=== PATIENT | male | born 1975 | race African-American/Black ===

== ENCOUNTER 2018-07-08 00:51 | Emergency (ER) | payer MEDICAID ==
[~2018-07-08] VITALS: Ht 182.9 cm; Wt 75.0 kg
[2018-07-08 05:50] LABS: HEMATOCRIT. 23.5 % (42.0-52.0); HEMOGLOBIN. 7.8 g/dL (14.0-18.0); MEAN CORPUSCULAR HEMOGLOBIN 29.3 pg (28.0-32.0); PLATELET 117 x1000/uL (130-400); RED BLOOD CELL COUNT 2.67 mill/uL (4.7-6.1); RED CELL DISTRIBUTION WIDTH 14.6 % (11.6-14.6)
[2018-07-08 05:54] LABS: CHLORIDE 103 mEq/L (98-107)
[2018-07-08 05:55] LABS: INR 1.1
[2018-07-08 06:01] LABS: ETHANOL BLOOD < 10 mg/dL
[2018-07-08] MEDS ORDERED: ACETAMINOPHEN 325MG TABLET PO STA (06:20)
[2018-07-08 06:26] LABS: CLARITY URINE CLEAR (CLEAR); COLOR URINE DARK YELLOW (YELLOW); KETONES URINE TRACE (NEGATIVE); LEUKOCYTE ESTERASE URINE NEGATIVE (NEGATIVE); NITRITE URINE NEGATIVE (NEGATIVE); OCCULT BLOOD URINE 2+ (NEGATIVE); PROTEIN URINE 3+ (NEGATIVE)
[2018-07-08] MEDS ORDERED: SODIUM CHLORIDE 0.9% 1000ML BAG (SEPSIS BOLUS) IV ONE (06:30)
[2018-07-08] MEDS ORDERED: PIPERACILLIN/TAZ 3.375G PREMIX 50 ML IV ONE (06:30)
[2018-07-08] MEDS ORDERED: VANCOMYCIN 1 G PREMIX 200 ML IV ONE (06:30)
[2018-07-08 06:42] LABS: *AMPHETAMINES SCREEN URINE NEGATIVE (NEGATIVE); *BARBITURATES SCREEN URINE NEGATIVE (NEGATIVE); *BENZODIAZEPINES SCREEN URINE NEGATIVE (NEGATIVE); *COCAINE SCREEN URINE NEGATIVE (NEGATIVE)
[2018-07-08 06:43] LABS: METHADONE URINE SCREEN NEGATIVE (NEGATIVE); OPIATES URINE SCREEN NEGATIVE (NEGATIVE); PHENCYCLIDINE URINE SCREEN NEGATIVE (NEGATIVE)
[2018-07-08 06:44] LABS: CANNABINOID URINE SCREEN NEGATIVE (NEGATIVE)
[2018-07-08 07:40] LABS: PLATELET ESTIMATE SLIGHTLY DECREASED
[2018-07-08 10:47] VITALS: BP 123/59
== END 2018-07-08 10:50 | disposition home or self-care (01) ==
LOC: ER 00:51
DX: B34.9 Viral infection, unspecified (principal); D64.9 Anemia, unspecified; F17.200 Nicotine dependence, unspecified, uncomplicated; Z98.890 Other specified postprocedural states
CPT/HCPCS: 36415; 71045; 80053; 80305; 80320; 81003; 83605; 85025; 85610; 87040; 87804; 96365; 96366; 96367; 99284; J2543; J3370; J7030; J7040; G0480

== ENCOUNTER 2020-05-02 04:26 | Inpatient (IN) | payer MEDICAID ==
[~2020-05-02] VITALS: Ht 175.3 cm; Wt 77.1 kg
[2020-05-02 05:21] LABS: BASOPHILS % 0.8 % (0.0-2.0); EOSINOPHILS % 0.3 % (0.0-5.0); HEMOGLOBIN. 10.6 g/dL (14.0-18.0); LYMPHOCYTES % 22.7 % (20.0-50.0); MEAN CORPUSCULAR HEMOGLOBIN 30.1 pg (28.0-32.0); MEAN CORPUSCULAR VOLUME 93.2 fL (80.0-94.0); MEAN PLATELET VOLUME 9.8 fl (7.4-10.4); MONOCYTES % 12.2 % (2.0-8.0); PLATELET 182 x1000/uL (130-400); RED BLOOD CELL COUNT 3.54 mill/uL (4.7-6.1)
[2020-05-02 05:27] LABS: CHLORIDE 107 mEq/L (98-107)
[2020-05-02] MEDS ORDERED: ASPIRIN 81MG TABLET PO ONE (07:00)
[2020-05-02] MEDS ORDERED: FUROSEMIDE 40MG/4ML VIAL IV ONE (07:00)
[2020-05-02] MEDS ORDERED: ONDANSETRON HCL 4MG/2ML INJ IV PRN (08:45)
[2020-05-02] MEDS ORDERED: ACETAMINOPHEN 325MG TABLET PO PRN (08:45)
[2020-05-02] MEDS: ENOXAPARIN 100MG/ML SYR SUBCUT SCH ×3 (09:00→21:59)
[2020-05-02] MEDS: FUROSEMIDE 40MG/4ML VIAL IVP SCH ×2 (09:00→17:31)
[2020-05-02] MEDS: CARVEDILOL 3.125 MG TABLET PO SCH ×2 (14:31→21:58)
[2020-05-02 16:00] VITALS: BP 119/69
[2020-05-02] MEDS ORDERED: NOREPINEPHRINE 8 MG in DEXTROSE 5% WATER 250 ML IV PRN (16:00)
[2020-05-02] MEDS ORDERED: NOREPINEPHRINE 8 MG in DEXT 5% WATER 242 ML IV PRN (16:00)
[2020-05-02 16:26] VITALS: BP 123/82
[2020-05-02] MEDS ORDERED: FURO-151 MT (16:41)
[2020-05-02] MEDS: THIAMINE HCL 100MG TABLET PO SCH (17:31)
[2020-05-02 19:58] VITALS: BP 103/1
[2020-05-03] VITALS: BP 108/60
[2020-05-03 04:00] VITALS: BP 126/84
[2020-05-03] MEDS: FUROSEMIDE 40MG/4ML VIAL IVP SCH (06:15)
[2020-05-03 06:25] LABS: *AMPHETAMINES SCREEN URINE NEGATIVE (NEGATIVE)
[2020-05-03 06:26] LABS: *BARBITURATES SCREEN URINE NEGATIVE (NEGATIVE); *BENZODIAZEPINES SCREEN URINE NEGATIVE (NEGATIVE); *COCAINE SCREEN URINE NEGATIVE (NEGATIVE); METHADONE URINE SCREEN NEGATIVE (NEGATIVE); OPIATES URINE SCREEN NEGATIVE (NEGATIVE); PHENCYCLIDINE URINE SCREEN NEGATIVE (NEGATIVE)
[2020-05-03 06:27] LABS: CANNABINOID URINE SCREEN NEGATIVE (NEGATIVE)
[2020-05-03 06:43] LABS: CHLORIDE 104 mEq/L (98-107)
[2020-05-03 06:47] LABS: INR 1.2; PROTHROMBIN TIME 12.9 sec (9.6-11.0)
[2020-05-03] MEDS: ENOXAPARIN 100MG/ML SYR SUBCUT SCH (09:00)
[2020-05-03] MEDS: CARVEDILOL 3.125 MG TABLET PO SCH (10:09)
[2020-05-03] MEDS: THIAMINE HCL 100MG TABLET PO SCH (10:09)
[2020-05-03 12:00] VITALS: BP 112/86
[2020-05-03] MEDS ORDERED: FUROSEMIDE 40MG/4ML VIAL IVP NR (13:00)
[2020-05-03] MEDS ORDERED: LORAZEPAM 2MG/ML CPJ IV PRN (13:00)
[2020-05-03] MEDS ORDERED: CHLORDIAZEPOXIDE 25MG CAPSULE PO NR (13:00)
[2020-05-03] MEDS ORDERED: ENOXAPARIN 80MG/0.8ML SYR SUBCUT SCH (21:00)
[2020-05-03] MEDS ORDERED: CHLORDIAZEPOXIDE 25MG CAPSULE PO SCH (22:00)
== END 2020-05-03 14:00 | disposition left against medical advice (07) | DRG 194 ==
LOC: ER 04:26 → 8WST 08:33 → ENRESERV 14:53
PROVIDERS: ADMIT Internal Medicine; ATTEND Internal Medicine
DX: I13.0 Hypertensive heart and chronic kidney disease with heart failure and stage 1 through stage 4 chronic kidney disease, or unspecified chronic kidney disease (principal); D64.9 Anemia, unspecified; E44.0 Moderate protein-calorie malnutrition; F10.10 Alcohol abuse, uncomplicated; F17.210 Nicotine dependence, cigarettes, uncomplicated; N18.2 Chronic kidney disease, stage 2 (mild); I48.91 Unspecified atrial fibrillation; R74.01 Elevation of levels of liver transaminase levels; I50.43 Acute on chronic combined systolic (congestive) and diastolic (congestive) heart failure; Z53.29 Procedure and treatment not carried out because of patient's decision for other reasons; Z68.25 Body mass index [BMI] 25.0-25.9, adult; I33.0 Acute and subacute infective endocarditis
CPT/HCPCS: 36415; 71045; 80048; 80053; 80061; 80305; 83880; 84443; 84484; 85025; 93005; 93306; 96374; 99291; J1650; J1940

== ENCOUNTER 2020-05-11 07:13 | Inpatient (IN) | payer MEDICAID ==
[~2020-05-11] VITALS: Ht 175.3 cm; Wt 93.9 kg
[~2020-05-11 07:13] MED LIST: FURO-151 MT
[2020-05-11 08:01] LABS: BASOPHILS % 0.6 % (0.0-2.0); EOSINOPHILS % 0.1 % (0.0-5.0); HEMATOCRIT. 34.5 % (42.0-52.0); HEMOGLOBIN. 10.9 g/dL (14.0-18.0); LYMPHOCYTES % 13.3 % (20.0-50.0); MEAN CORPUSCULAR HEMOGLOBIN 29.8 pg (28.0-32.0); MEAN PLATELET VOLUME 10.8 fl (7.4-10.4); MONOCYTES % 14.8 % (2.0-8.0); NEUTROPHILS % 71.2 % (40.0-76.0); PLATELET 169 x1000/uL (130-400); RED BLOOD CELL COUNT 3.67 mill/uL (4.7-6.1); RED CELL DISTRIBUTION WIDTH 17.7 % (11.6-14.6)
[2020-05-11 08:03] LABS: CHLORIDE 106 mEq/L (98-107)
[2020-05-11] MEDS ORDERED: ONDANSETRON HCL 4MG/2ML INJ IV PRN (12:45)
[2020-05-11] MEDS: ENOXAPARIN 80MG/0.8ML SYR SUBCUT SCH (13:00)
[2020-05-11] MEDS: DILTIAZEM HCL 30MG TABLET PO SCH ×2 (13:09→21:19)
[2020-05-11] MEDS: FUROSEMIDE 40MG/4ML VIAL IVP SCH ×2 (13:09→18:57)
[2020-05-11 14:45] LABS: BASOPHILS % 0.8 % (0.0-2.0); HEMATOCRIT. 34.9 % (42.0-52.0); HEMOGLOBIN. 11.2 g/dL (14.0-18.0); MEAN CORPUSCULAR HEMOGLOBIN 29.8 pg (28.0-32.0); MEAN CORPUSCULAR VOLUME 93.2 fL (80.0-94.0); MEAN PLATELET VOLUME 10.8 fl (7.4-10.4); NEUTROPHILS % 76.2 % (40.0-76.0); PLATELET 173 x1000/uL (130-400); RED BLOOD CELL COUNT 3.74 mill/uL (4.7-6.1); RED CELL DISTRIBUTION WIDTH 17.9 % (11.6-14.6)
[2020-05-11] MEDS ORDERED: IPRATROPIUM/ALBUTEROL 0.5-3(2.5)MG/3ML NEB HHN PRN (14:45)
[2020-05-11 14:56] LABS: METHADONE URINE SCREEN NEGATIVE (NEGATIVE); OPIATES URINE SCREEN NEGATIVE (NEGATIVE)
[2020-05-11 14:57] LABS: *AMPHETAMINES SCREEN URINE NEGATIVE (NEGATIVE); *BARBITURATES SCREEN URINE NEGATIVE (NEGATIVE)
[2020-05-11 14:58] LABS: PHENCYCLIDINE URINE SCREEN NEGATIVE (NEGATIVE)
[2020-05-11 14:59] LABS: *COCAINE SCREEN URINE NEGATIVE (NEGATIVE)
[2020-05-11 15:00] LABS: CANNABINOID URINE SCREEN NEGATIVE (NEGATIVE)
[2020-05-11] MEDS ORDERED: CEFTRIAXONE 2 G PREMIX 50 ML IV SCH (15:00)
[2020-05-11] MEDS ORDERED: VANCOMYCIN 1,750 MG in DEXT 5% WATER 250 ML IV NR (15:00)
[2020-05-11 15:01] LABS: *BENZODIAZEPINES SCREEN URINE NEGATIVE (NEGATIVE)
[2020-05-11] MEDS: CEFTRIAXONE 2 G in DEXTROSE 5% WATER 50 ML IV SCH (18:38)
[2020-05-11] MEDS: ACETAMINOPHEN 325MG TABLET PO PRN (23:19)
[2020-05-12 03:58] LABS: BASOPHILS % 0.4 % (0.0-2.0); EOSINOPHILS % 0.1 % (0.0-5.0); HEMATOCRIT. 35.9 % (42.0-52.0); LYMPHOCYTES % 7.8 % (20.0-50.0); MEAN CORPUSCULAR VOLUME 94.5 fL (80.0-94.0); MEAN PLATELET VOLUME 11.1 fl (7.4-10.4); MONOCYTES % 14.1 % (2.0-8.0); NEUTROPHILS % 77.6 % (40.0-76.0); PLATELET 166 x1000/uL (130-400); RED CELL DISTRIBUTION WIDTH 17.6 % (11.6-14.6)
[2020-05-12 04:08] LABS: INR 1.3; PROTHROMBIN TIME 13.7 sec (9.6-11.0)
[2020-05-12] MEDS: DILTIAZEM HCL 30MG TABLET PO SCH ×3 (06:56→21:00)
[2020-05-12] MEDS: ENOXAPARIN 80MG/0.8ML SYR SUBCUT SCH (06:57)
[2020-05-12 10:30] VITALS: BP 103/86
[2020-05-12] MEDS: FUROSEMIDE 40MG/4ML VIAL IVP SCH ×2 (11:31→18:08)
[2020-05-12] MEDS: ACETAMINOPHEN 325MG TABLET PO PRN (11:32)
[2020-05-12 12:00] VITALS: BP 90/54
[2020-05-12] MEDS ORDERED: METO-396 MT (15:04)
[2020-05-12] MEDS ORDERED: LOSA25TA26 MT (15:04)
[2020-05-12 16:00] VITALS: BP 114/83
[2020-05-12] MEDS: CEFTRIAXONE 2 G in DEXTROSE 5% WATER 50 ML IV SCH (18:08)
[2020-05-12] MEDS: APIXABAN 5 MG TABLET PO SCH (18:08)
[2020-05-12 20:00] VITALS: BP 125/78
[2020-05-12] MEDS ORDERED: METOLAZONE 2.5MG TABLET PO NR (20:30)
[2020-05-13] VITALS: BP 98/79
[2020-05-13 04:00] VITALS: BP 112/85
[2020-05-13] MEDS: DILTIAZEM HCL 30MG TABLET PO SCH ×3 (05:14→22:00)
[2020-05-13 08:00] VITALS: BP 107/66
[2020-05-13] MEDS: APIXABAN 5 MG TABLET PO SCH ×2 (09:20→17:21)
[2020-05-13] MEDS: FUROSEMIDE 40MG/4ML VIAL IVP SCH ×2 (09:20→17:21)
[2020-05-13 12:00] VITALS: BP 110/78
[2020-05-13] MEDS ORDERED: VANCOMYCIN 1250MG in DEXTROSE 5% WATER 250ML IV NR (14:00)
[2020-05-13] MEDS: CEFTRIAXONE 2 G in DEXTROSE 5% WATER 50 ML IV SCH (14:39)
[2020-05-13] MEDS: ACETAMINOPHEN 325MG TABLET PO PRN (14:53)
[2020-05-13 16:00] VITALS: BP 101/76
[2020-05-13] MEDS ORDERED: DAPTOMYCIN 500 MG in SODIUM CHLORIDE 0.9% 50 ML IV SCH ×2 (19:30→21:00)
[2020-05-13 20:00] VITALS: BP 117/84
[2020-05-13] MEDS ORDERED: DAPTOMYCIN 250 MG in SODIUM CHLORIDE 0.9% 50 ML IV SCH (20:00)
[2020-05-13] MEDS: DAPTOMYCIN 500 MG in SODIUM CHLORIDE 0.9% 50 ML IV SCH (22:00)
[2020-05-14] VITALS: BP 102/76
[2020-05-14 04:00] VITALS: BP 99/70
[2020-05-14] MEDS: DILTIAZEM HCL 30MG TABLET PO SCH ×3 (06:00→21:28)
[2020-05-14] MEDS: ACETAMINOPHEN 325MG TABLET PO PRN ×2 (06:58→22:30)
[2020-05-14 07:38] LABS: BASOPHILS % 0.1 % (0.0-2.0); EOSINOPHILS % 0.1 % (0.0-5.0); HEMATOCRIT. 34.4 % (42.0-52.0); HEMOGLOBIN. 11.1 g/dL (14.0-18.0); MEAN CORPUSCULAR HEMOGLOBIN 30.1 pg (28.0-32.0); MEAN CORPUSCULAR VOLUME 93.8 fL (80.0-94.0); MEAN PLATELET VOLUME 11.3 fl (7.4-10.4); MONOCYTES % 11.8 % (2.0-8.0); PLATELET 184 x1000/uL (130-400); RED BLOOD CELL COUNT 3.67 mill/uL (4.7-6.1)
[2020-05-14 08:00] VITALS: BP 110/78
[2020-05-14] MEDS: FUROSEMIDE 40MG/4ML VIAL IVP SCH ×2 (08:37→17:02)
[2020-05-14] MEDS: APIXABAN 5 MG TABLET PO SCH ×2 (08:38→17:02)
[2020-05-14] MEDS ORDERED: LIDOCAINE HCL/PF 1% 2ML VIAL ONE (09:00)
[2020-05-14 10:26] LABS: BG BASE EXCESS -3.9 mmol/L (-2.0-2.0); BG CARBOXYHEMOGLOBIN 0.6 % (0.5-1.5); BG DEOXYHEMOGLOBIN 1.1 % (0.0-5.0); BG FRACTION INSPIRED OXYGEN 36; BG HCO3 ACT 19.6 mmol/L (22.0-26.0); BG METHEMOGLOBIN 0.3 % (0.0-1.5); BG OXYGEN SATURATION 98.9 % (92.0-98.5); BG PCO2 30.9 mmHg (35.0-45.0); BG PH 7.421 (7.350-7.450); BG PO2 137.9 mmHg (75.0-100.0); BG SAMPLE SITE RIGHT RADIAL; BG TOTAL HEMOGLOBIN 11.7 g/dL (12.0-18.0); BG VENT MODE NASAL CANNULA
[2020-05-14 12:00] VITALS: BP 102/80
[2020-05-14 16:00] VITALS: BP 141/108
[2020-05-14] MEDS: CEFTRIAXONE 2 G in DEXTROSE 5% WATER 50 ML IV SCH (16:54)
[2020-05-14 20:00] VITALS: BP 110/77
[2020-05-14] MEDS: DAPTOMYCIN 500 MG in SODIUM CHLORIDE 0.9% 50 ML IV SCH (22:21)
[2020-05-15] VITALS: BP 111/72
[2020-05-15] MEDS: DAPTOMYCIN 500 MG in SODIUM CHLORIDE 0.9% 50 ML IV SCH ×2 (03:26→21:44)
[2020-05-15 04:00] VITALS: BP 122/60
[2020-05-15] MEDS: DILTIAZEM HCL 30MG TABLET PO SCH ×4 (05:56→21:44)
[2020-05-15 08:00] VITALS: BP 116/86
[2020-05-15] MEDS: FUROSEMIDE 40MG/4ML VIAL IVP SCH ×2 (08:32→16:42)
[2020-05-15] MEDS: APIXABAN 5 MG TABLET PO SCH ×2 (08:33→16:42)
[2020-05-15 12:00] VITALS: BP 100/77
[2020-05-15 15:51] LABS: BASOPHILS % 0.6 % (0.0-2.0); EOSINOPHILS % 0.1 % (0.0-5.0); HEMATOCRIT. 34.5 % (42.0-52.0); HEMOGLOBIN. 11.1 g/dL (14.0-18.0); LYMPHOCYTES % 8.2 % (20.0-50.0); MEAN CORPUSCULAR HEMOGLOBIN 30.2 pg (28.0-32.0); MEAN CORPUSCULAR VOLUME 94.3 fL (80.0-94.0); MONOCYTES % 13.6 % (2.0-8.0); NEUTROPHILS % 77.5 % (40.0-76.0); PLATELET 149 x1000/uL (130-400); RED BLOOD CELL COUNT 3.66 mill/uL (4.7-6.1); RED CELL DISTRIBUTION WIDTH 18.1 % (11.6-14.6)
[2020-05-15 16:00] VITALS: BP 109/87
[2020-05-15 16:03] LABS: PHOSPHORUS 5.2 mg/dL (2.5-4.9)
[2020-05-15] MEDS: CEFTRIAXONE 2 G in DEXTROSE 5% WATER 50 ML IV SCH (16:17)
[2020-05-15 20:00] VITALS: BP 109/88
[2020-05-15] MEDS: ACETAMINOPHEN 325MG TABLET PO PRN (21:54)
[2020-05-16] VITALS: BP 103/79
[2020-05-16 04:00] VITALS: BP 113/88
[2020-05-16] MEDS: DILTIAZEM HCL 30MG TABLET PO SCH ×3 (05:56→22:57)
[2020-05-16 06:47] LABS: HEMATOCRIT. 33.2 % (42.0-52.0); HEMOGLOBIN. 10.9 g/dL (14.0-18.0); MEAN CORPUSCULAR HEMOGLOBIN 30.6 pg (28.0-32.0); MEAN CORPUSCULAR VOLUME 93.4 fL (80.0-94.0); MEAN PLATELET VOLUME 11.5 fl (7.4-10.4); PLATELET 164 x1000/uL (130-400); RED BLOOD CELL COUNT 3.55 mill/uL (4.7-6.1)
[2020-05-16 06:53] LABS: PHOSPHORUS 4.6 mg/dL (2.5-4.9)
[2020-05-16 08:00] VITALS: BP 107/81
[2020-05-16] MEDS: APIXABAN 5 MG TABLET PO SCH ×2 (08:32→16:48)
[2020-05-16] MEDS: FUROSEMIDE 40MG/4ML VIAL IVP SCH ×2 (08:32→16:48)
[2020-05-16 12:00] VITALS: BP 125/84
[2020-05-16] MEDS: CEFTRIAXONE 2 G in DEXTROSE 5% WATER 50 ML IV SCH (14:46)
[2020-05-16 16:00] VITALS: BP 123/87
[2020-05-16 18:14] LABS: PLATELET ESTIMATE NORMAL
[2020-05-16 20:00] VITALS: BP 117/89
[2020-05-16] MEDS: ACETAMINOPHEN 325MG TABLET PO PRN (23:54)
[2020-05-17 04:00] VITALS: BP 112/86
[2020-05-17] MEDS: DILTIAZEM HCL 30MG TABLET PO SCH ×3 (06:15→21:59)
[2020-05-17 07:07] LABS: HEMOGLOBIN. 11.1 g/dL (14.0-18.0); MEAN CORPUSCULAR VOLUME 94.4 fL (80.0-94.0); MEAN PLATELET VOLUME 10.8 fl (7.4-10.4); PLATELET 162 x1000/uL (130-400); RED CELL DISTRIBUTION WIDTH 17.5 % (11.6-14.6)
[2020-05-17 07:50] LABS: CHLORIDE 98 mEq/L (98-107)
[2020-05-17 07:55] LABS: PHOSPHORUS 3.9 mg/dL (2.5-4.9)
[2020-05-17 08:00] VITALS: BP 125/89
[2020-05-17] MEDS: FUROSEMIDE 40MG/4ML VIAL IVP SCH ×2 (08:50→16:06)
[2020-05-17] MEDS: APIXABAN 5 MG TABLET PO SCH ×2 (08:50→16:06)
[2020-05-17 12:00] VITALS: BP 125/89
[2020-05-17 12:19] LABS: PLATELET ESTIMATE NORMAL
[2020-05-17 13:37] LABS: CLARITY URINE CLEAR (CLEAR); COLOR URINE DARK YELLOW (YELLOW); KETONES URINE NEGATIVE (NEGATIVE); LEUKOCYTE ESTERASE URINE NEGATIVE (NEGATIVE); NITRITE URINE NEGATIVE (NEGATIVE); OCCULT BLOOD URINE NEGATIVE (NEGATIVE); PH URINE 5.5 (4.5-8.0); PROTEIN URINE 1+ (NEGATIVE); SPECIFIC GRAVITY URINE 1.018 (1.005-1.030); UROBILINOGEN URINE 0.2 E.U./dL (0.2-1.0)
[2020-05-17] MEDS: CEFTRIAXONE 2 G in DEXTROSE 5% WATER 50 ML IV SCH (14:34)
[2020-05-17 15:57] LABS: BG BASE EXCESS 5.6 mmol/L (-2.0-2.0); BG CARBOXYHEMOGLOBIN 0.9 % (0.5-1.5); BG DEOXYHEMOGLOBIN 5.6 % (0.0-5.0); BG HCO3 ACT 28.9 mmol/L (22.0-26.0); BG METHEMOGLOBIN 0.3 % (0.0-1.5); BG OXYGEN SATURATION 94.3 % (92.0-98.5); BG OXYHEMOGLOBIN 93.2 % (94.0-97.0); BG PCO2 37.6 mmHg (35.0-45.0); BG PH 7.504 (7.350-7.450); BG PO2 69.8 mmHg (75.0-100.0); BG SAMPLE SITE RIGHT BRACHIAL; BG VENT MODE ROOM AIR
[2020-05-17 16:00] VITALS: BP 118/86
[2020-05-17 20:00] VITALS: BP 107/81
[2020-05-17] MEDS: ACETAMINOPHEN 325MG TABLET PO PRN (22:06)
[2020-05-18] VITALS: BP 110/66
[2020-05-18 04:00] VITALS: BP 115/85
[2020-05-18] MEDS: DILTIAZEM HCL 30MG TABLET PO SCH ×3 (06:14→21:20)
[2020-05-18 06:41] LABS: CHLORIDE 101 mEq/L (98-107)
[2020-05-18 06:49] LABS: PHOSPHORUS 2.9 mg/dL (2.5-4.9)
[2020-05-18 06:58] LABS: HEMATOCRIT. 32.6 % (42.0-52.0); HEMOGLOBIN. 10.4 g/dL (14.0-18.0); MEAN CORPUSCULAR HEMOGLOBIN 29.5 pg (28.0-32.0); MEAN CORPUSCULAR VOLUME 92.1 fL (80.0-94.0); MEAN PLATELET VOLUME 10.9 fl (7.4-10.4); PLATELET 175 x1000/uL (130-400); RED BLOOD CELL COUNT 3.54 mill/uL (4.7-6.1); RED CELL DISTRIBUTION WIDTH 17.4 % (11.6-14.6)
[2020-05-18 08:00] VITALS: BP 119/76
[2020-05-18] MEDS ORDERED: SODIUM BICARBONATE 4% (2.4MEQ) 5ML VIAL IV ONE (08:19)
[2020-05-18] MEDS ORDERED: LIDOCAINE HCL 1% 20ML VIAL (Pyxis) INJ ONE (08:19)
[2020-05-18] MEDS: FUROSEMIDE 40MG/4ML VIAL IVP SCH ×2 (09:20→17:11)
[2020-05-18] MEDS: APIXABAN 5 MG TABLET PO SCH ×2 (09:20→17:11)
[2020-05-18 12:00] VITALS: BP 111/87
[2020-05-18] MEDS ORDERED: DILT120C88 MT (13:00)
[2020-05-18] MEDS ORDERED: APIX5TAB PO (13:00)
[2020-05-18] MEDS ORDERED: FURO-151 MT (13:00)
[2020-05-18 14:00] LABS: NUCLEATED RED BLOOD CELLS 1 /100 WBC; PLATELET ESTIMATE NORMAL
[2020-05-18] MEDS: CEFTRIAXONE 2 G in DEXTROSE 5% WATER 50 ML IV SCH (14:56)
[2020-05-18 16:00] VITALS: BP 116/90
[2020-05-18 20:00] VITALS: BP 110/82
[2020-05-19] VITALS: BP 112/60
[2020-05-19 04:00] VITALS: BP 113/75
[2020-05-19] MEDS: DILTIAZEM HCL 30MG TABLET PO SCH (06:14)
[2020-05-19 08:00] VITALS: BP 118/74
[2020-05-19] MEDS: FUROSEMIDE 40MG/4ML VIAL IVP SCH (08:05)
[2020-05-19] MEDS: APIXABAN 5 MG TABLET PO SCH (08:05)
[2020-05-19 12:00] VITALS: BP_SYST 75
[2020-05-19] MEDS ORDERED: POTASSIUM CHLORIDE 20MEQ TABLET SR PO SCH (13:30)
[2020-05-19 14:01] VITALS: BP 118/74
[2020-05-20] MEDS ORDERED: POTASSIUM CHLORIDE 20MEQ TABLET SR PO SCH (09:00)
== END 2020-05-19 15:06 | disposition home health service (06) | DRG 720 ==
LOC: ER 07:13 → MICUSO 10:59 → EDBEDREQTM 11:00 → EDBEDREQ 11:00 → EDBEDREQDT 05-12 01:33 → EDBEDREQSVC 05-12 01:33 → EDBEDREQTM 05-12 01:33 → ENRESERV 05-12 08:45 → 8WST 05-12 09:46
PROVIDERS: ADMIT Internal Medicine; ATTEND Internal Medicine
PROC: 02HV33Z Insertion of Infusion Device into Superior Vena Cava, Percutaneous Approach (ICD-10-PCS; principal; 2020-05-18)
PROC: B548ZZA Ultrasonography of Superior Vena Cava, Guidance (ICD-10-PCS; 2020-05-18)
DX: A41.9 Sepsis, unspecified organism (principal); I33.0 Acute and subacute infective endocarditis; I50.33 Acute on chronic diastolic (congestive) heart failure; E43 Unspecified severe protein-calorie malnutrition; D64.9 Anemia, unspecified; I34.0 Nonrheumatic mitral (valve) insufficiency; I27.20 Pulmonary hypertension, unspecified; I48.20 Chronic atrial fibrillation, unspecified; F17.210 Nicotine dependence, cigarettes, uncomplicated; R74.01 Elevation of levels of liver transaminase levels; F10.10 Alcohol abuse, uncomplicated; Y90.9 Presence of alcohol in blood, level not specified; I34.8 Other nonrheumatic mitral valve disorders; J96.91 Respiratory failure, unspecified with hypoxia; I13.0 Hypertensive heart and chronic kidney disease with heart failure and stage 1 through stage 4 chronic kidney disease, or unspecified chronic kidney disease; N18.30 Chronic kidney disease, stage 3 unspecified; E87.6 Hypokalemia; Z79.84 Long term (current) use of oral hypoglycemic drugs; Z79.899 Other long term (current) drug therapy; Z71.6 Tobacco abuse counseling; Z91.19 Patient's noncompliance with other medical treatment and regimen; Z68.30 Body mass index [BMI] 30.0-30.9, adult; Z82.49 Family history of ischemic heart disease and other diseases of the circulatory system; N17.0 Acute kidney failure with tubular necrosis
CPT/HCPCS: 36415; 36600; 71045; 76770; 76937; 80048; 80053; 80202; 80305; 81003; 82375; 82550; 82805; 83735; 83880; 84100; 84145; 84484; 85025; 85651; 86160; 93005; 94618; 94640; 96365; 99285; C1725; C1769; C1893; J0696; J0878; J1650; J1940; J3370; J3490; J7040; J7060

== ENCOUNTER 2020-05-27 03:54 | Inpatient (IN) | payer MEDICAID, OTHER ==
[~2020-05-27] VITALS: Ht 154.3 cm; Wt 101.2 kg
[~2020-05-27 03:54] MED LIST changes: +APIX5TAB PO; +DILT120C88 MT
[2020-05-27 04:56] LABS: BASOPHILS % 0.1 % (0.0-2.0); EOSINOPHILS % 0.5 % (0.0-5.0); HEMATOCRIT. 30.6 % (42.0-52.0); LYMPHOCYTES % 8.2 % (20.0-50.0); MEAN CORPUSCULAR HEMOGLOBIN 29.7 pg (28.0-32.0); MEAN CORPUSCULAR VOLUME 91.3 fL (80.0-94.0); MEAN PLATELET VOLUME 10.8 fl (7.4-10.4); MONOCYTES % 10.9 % (2.0-8.0); NEUTROPHILS % 80.3 % (40.0-76.0); PLATELET 169 x1000/uL (130-400); RED BLOOD CELL COUNT 3.35 mill/uL (4.7-6.1); RED CELL DISTRIBUTION WIDTH 18.3 % (11.6-14.6)
[2020-05-27 05:05] LABS: CHLORIDE 99 mEq/L (98-107)
[2020-05-27] MEDS: METOPROLOL TARTRATE 5MG/5ML VIAL IV SCH ×3 (05:06→08:29)
[2020-05-27 05:07] LABS: INR 1.4; PROTHROMBIN TIME 14.6 sec (9.6-11.0)
[2020-05-27] MEDS: FUROSEMIDE 40MG/4ML VIAL IVP SCH ×3 (09:00→18:03)
[2020-05-27] MEDS ORDERED: ONDANSETRON HCL 4MG/2ML INJ IV PRN (09:00)
[2020-05-27] MEDS ORDERED: ACETAMINOPHEN 325MG TABLET PO PRN (09:00)
[2020-05-27] MEDS: ENOXAPARIN 80MG/0.8ML SYR SUBCUT SCH ×2 (11:25→21:00)
[2020-05-27 12:00] VITALS: BP 70/50
[2020-05-27] MEDS: HYDROCODONE/ACETAMINOPHEN 5/325MG TABLET PO PRN (13:54)
[2020-05-27 14:58] VITALS: BP 119/83
[2020-05-27 16:00] VITALS: BP 119/83
[2020-05-27] MEDS ORDERED: IPRATROPIUM/ALBUTEROL 0.5-3(2.5)MG/3ML NEB HHN PRN (17:15)
[2020-05-27] MEDS: CEFTRIAXONE 2,000 G in DEXTROSE 5% WATER 50 ML IV SCH (18:03)
[2020-05-27 21:39] VITALS: BP 105/78
[2020-05-28] VITALS: BP 101/72
[2020-05-28 01:24] VITALS: BP 101/72
[2020-05-28 04:00] VITALS: BP 105/84
[2020-05-28 06:50] LABS: BASOPHILS % 0.4 % (0.0-2.0); EOSINOPHILS % 0.2 % (0.0-5.0); HEMATOCRIT. 30.9 % (42.0-52.0); HEMOGLOBIN. 9.8 g/dL (14.0-18.0); LYMPHOCYTES % 10.6 % (20.0-50.0); MEAN CORPUSCULAR HEMOGLOBIN 29.1 pg (28.0-32.0); MEAN CORPUSCULAR VOLUME 92.3 fL (80.0-94.0); MEAN PLATELET VOLUME 11.3 fl (7.4-10.4); MONOCYTES % 12.8 % (2.0-8.0); PLATELET 160 x1000/uL (130-400); RED BLOOD CELL COUNT 3.35 mill/uL (4.7-6.1); RED CELL DISTRIBUTION WIDTH 18.6 % (11.6-14.6)
[2020-05-28] MEDS: ENOXAPARIN 80MG/0.8ML SYR SUBCUT SCH (09:00)
[2020-05-28] MEDS: FUROSEMIDE 40MG/4ML VIAL IVP SCH ×2 (10:16→17:46)
[2020-05-28] MEDS: HYDROCODONE/ACETAMINOPHEN 5/325MG TABLET PO PRN ×2 (10:57→18:28)
[2020-05-28 12:00] VITALS: BP 110/79
[2020-05-28 16:00] VITALS: BP 107/76
[2020-05-28] MEDS: CEFTRIAXONE 2,000 G in DEXTROSE 5% WATER 50 ML IV SCH (17:46)
[2020-05-28 20:00] VITALS: BP 97/76
[2020-05-28 23:04] LABS: *BARBITURATES SCREEN URINE NEGATIVE (NEGATIVE); *BENZODIAZEPINES SCREEN URINE NEGATIVE (NEGATIVE); *COCAINE SCREEN URINE NEGATIVE (NEGATIVE); METHADONE URINE SCREEN NEGATIVE (NEGATIVE); OPIATES URINE SCREEN PRESUMTIVE POSITIVE (NEGATIVE)
[2020-05-28 23:05] LABS: *AMPHETAMINES SCREEN URINE NEGATIVE (NEGATIVE); CANNABINOID URINE SCREEN NEGATIVE (NEGATIVE); PHENCYCLIDINE URINE SCREEN NEGATIVE (NEGATIVE)
[2020-05-29] VITALS (7 sets, daily range): BP systolic 102–141; BP diastolic 63–105
[2020-05-29 06:55] LABS: BASOPHILS % 0.6 % (0.0-2.0); EOSINOPHILS % 0.9 % (0.0-5.0); HEMATOCRIT. 31.1 % (42.0-52.0); HEMOGLOBIN. 9.8 g/dL (14.0-18.0); LYMPHOCYTES % 9.2 % (20.0-50.0); MEAN CORPUSCULAR HEMOGLOBIN 29.3 pg (28.0-32.0); MEAN PLATELET VOLUME 11.8 fl (7.4-10.4); MONOCYTES % 12.4 % (2.0-8.0); NEUTROPHILS % 76.9 % (40.0-76.0); PLATELET 157 x1000/uL (130-400); RED BLOOD CELL COUNT 3.35 mill/uL (4.7-6.1); RED CELL DISTRIBUTION WIDTH 18.7 % (11.6-14.6)
[2020-05-29] MEDS: FUROSEMIDE 40MG/4ML VIAL IVP SCH ×2 (09:08→17:18)
[2020-05-29] MEDS: HYDROCODONE/ACETAMINOPHEN 5/325MG TABLET PO PRN (09:40)
[2020-05-29] MEDS ORDERED: ALBUMIN HUMAN 25GM/100ML (25%) IV NR (13:30)
[2020-05-29 14:58] LABS: CLARITY URINE CLEAR (CLEAR); COLOR URINE DARK YELLOW (YELLOW); KETONES URINE NEGATIVE (NEGATIVE); LEUKOCYTE ESTERASE URINE 1+ (NEGATIVE); NITRITE URINE NEGATIVE (NEGATIVE); OCCULT BLOOD URINE NEGATIVE (NEGATIVE); PROTEIN URINE 1+ (NEGATIVE); SPECIFIC GRAVITY URINE 1.016 (1.005-1.030)
[2020-05-29] MEDS: CEFTRIAXONE 2,000 G in DEXTROSE 5% WATER 50 ML IV SCH (16:02)
[2020-05-30] VITALS: BP 104/80
[2020-05-30 04:00] VITALS: BP 112/70
[2020-05-30] MEDS: HYDROCODONE/ACETAMINOPHEN 5/325MG TABLET PO PRN ×2 (05:17→10:31)
[2020-05-30 07:25] LABS: BASOPHILS % 1.2 % (0.0-2.0); EOSINOPHILS % 0.4 % (0.0-5.0); HEMATOCRIT. 29.9 % (42.0-52.0); HEMOGLOBIN. 9.6 g/dL (14.0-18.0); LYMPHOCYTES % 8.7 % (20.0-50.0); MEAN CORPUSCULAR HEMOGLOBIN 29.6 pg (28.0-32.0); MEAN CORPUSCULAR VOLUME 92.2 fL (80.0-94.0); MEAN PLATELET VOLUME 11.4 fl (7.4-10.4); MONOCYTES % 13.5 % (2.0-8.0); NEUTROPHILS % 76.2 % (40.0-76.0); PLATELET 155 x1000/uL (130-400); RED BLOOD CELL COUNT 3.24 mill/uL (4.7-6.1); RED CELL DISTRIBUTION WIDTH 18.5 % (11.6-14.6)
[2020-05-30 07:37] LABS: PHOSPHORUS 4.7 mg/dL (2.5-4.9)
[2020-05-30 08:00] VITALS: BP 129/68
[2020-05-30] MEDS: FUROSEMIDE 40MG/4ML VIAL IVP SCH (09:54)
[2020-05-30 12:00] VITALS: BP 109/88
[2020-05-30] MEDS ORDERED: DILTIAZEM HCL 30MG TABLET PO SCH (14:00)
[2020-05-30] MEDS: CEFTRIAXONE 2,000 G in DEXTROSE 5% WATER 50 ML IV SCH (15:01)
[2020-05-30 16:24] VITALS: BP 109/88
[2020-05-31] MEDS ORDERED: FUROSEMIDE 40MG/4ML VIAL IVP SCH (08:00)
== END 2020-05-30 16:55 | disposition home or self-care (01) | DRG 193 ==
LOC: ER 03:54 → 8WST 04:59 → ENRESERV 08:20
PROVIDERS: ADMIT Internal Medicine; ATTEND Internal Medicine
PROC: 0JBR0ZZ Excision of Left Foot Subcutaneous Tissue and Fascia, Open Approach (ICD-10-PCS; principal; 2020-05-29)
PROC: 0JBQ0ZZ Excision of Right Foot Subcutaneous Tissue and Fascia, Open Approach (ICD-10-PCS; 2020-05-29)
DX: I33.0 Acute and subacute infective endocarditis (principal); J96.20 Acute and chronic respiratory failure, unspecified whether with hypoxia or hypercapnia; L97.329 Non-pressure chronic ulcer of left ankle with unspecified severity; I73.9 Peripheral vascular disease, unspecified; I13.0 Hypertensive heart and chronic kidney disease with heart failure and stage 1 through stage 4 chronic kidney disease, or unspecified chronic kidney disease; I87.8 Other specified disorders of veins; F17.210 Nicotine dependence, cigarettes, uncomplicated; F10.10 Alcohol abuse, uncomplicated; Y90.9 Presence of alcohol in blood, level not specified; D64.9 Anemia, unspecified; I27.20 Pulmonary hypertension, unspecified; E66.9 Obesity, unspecified; N17.9 Acute kidney failure, unspecified; I50.33 Acute on chronic diastolic (congestive) heart failure; J44.9 Chronic obstructive pulmonary disease, unspecified; R26.89 Other abnormalities of gait and mobility; D68.9 Coagulation defect, unspecified; I48.20 Chronic atrial fibrillation, unspecified; N18.30 Chronic kidney disease, stage 3 unspecified; I34.0 Nonrheumatic mitral (valve) insufficiency; Z88.8 Allergy status to other drugs, medicaments and biological substances; Z79.899 Other long term (current) drug therapy; Z68.41 Body mass index [BMI] 40.0-44.9, adult; Z71.41 Alcohol abuse counseling and surveillance of alcoholic; Z71.6 Tobacco abuse counseling; Z82.49 Family history of ischemic heart disease and other diseases of the circulatory system; Z79.01 Long term (current) use of anticoagulants
CPT/HCPCS: 36415; 71045; 76770; 80048; 80053; 80305; 81003; 82550; 83735; 83880; 84100; 84145; 84484; 85025; 86160; 93005; 93923; 93970; 97161; 97166; 99285; C1893; J0696; J1650; J1940; J3490; J7040; J7060; P9047

== ENCOUNTER 2020-06-05 02:46 | Inpatient (IN) | payer OTHER ==
[~2020-06-05] VITALS: Ht 154.2 cm; Wt 97.7 kg
[2020-06-05] MEDS ORDERED: ONDANSETRON HCL 4MG/2ML INJ IV STA (03:19)
[2020-06-05] MEDS ORDERED: MORPHINE SULFATE 4 MG/ML CPJ (NOT FOR IM USE) IV STA (03:19)
[2020-06-05 03:45] LABS: HEMATOCRIT. 31.6 % (42.0-52.0); HEMOGLOBIN. 10.1 g/dL (14.0-18.0); MEAN CORPUSCULAR HEMOGLOBIN 28.9 pg (28.0-32.0); MEAN CORPUSCULAR VOLUME 90.8 fL (80.0-94.0); MEAN PLATELET VOLUME 10.5 fl (7.4-10.4); PLATELET 230 x1000/uL (130-400); RED BLOOD CELL COUNT 3.48 mill/uL (4.7-6.1); RED CELL DISTRIBUTION WIDTH 18.6 % (11.6-14.6)
[2020-06-05 04:00] LABS: INR 1.2; PARTIAL THROMBOPLASTIN TIME 26.8 sec (23.4-31.0); PROTHROMBIN TIME 12.4 sec (9.6-11.0)
[2020-06-05 04:03] LABS: CHLORIDE 97 mEq/L (98-107)
[2020-06-05 06:55] LABS: PLATELET ESTIMATE NORMAL
[2020-06-05] MEDS ORDERED: CLONIDINE 0.1MG TABLET PO PRN (09:15)
[2020-06-05] MEDS ORDERED: HYDROCODONE/ACETAMINOPHEN 5/325MG TABLET PO PRN (09:15)
[2020-06-05] MEDS ORDERED: MAGNESIUM/ALUMINUM HYDROXIDE/SIMETHICONE 30ML UDC PO PRN (09:15)
[2020-06-05] MEDS ORDERED: ACETAMINOPHEN 325MG TABLET PO PRN (09:15)
[2020-06-05] MEDS ORDERED: ONDANSETRON HCL 4MG/2ML INJ IV PRN (09:15)
[2020-06-05] MEDS: ENOXAPARIN 40MG/0.4ML SYR SUBCUT SCH ×2 (09:26→09:31)
[2020-06-05] MEDS: OMEPRAZOLE 20MG CAPSULE EXTENDED RELEASE PO SCH (09:26)
[2020-06-05] MEDS: MORPHINE SULFATE 2 MG/ML CPJ (NOT FOR IM USE) IV PRN ×2 (09:27→20:04)
[2020-06-05 10:51] LABS: CLARITY URINE CLEAR (CLEAR); COLOR URINE DARK YELLOW (YELLOW); KETONES URINE TRACE (NEGATIVE); LEUKOCYTE ESTERASE URINE 2+ (NEGATIVE); NITRITE URINE NEGATIVE (NEGATIVE); OCCULT BLOOD URINE NEGATIVE (NEGATIVE); PROTEIN URINE 2+ (NEGATIVE); SPECIFIC GRAVITY URINE 1.023 (1.005-1.030)
[2020-06-05 12:47] LABS: TOTAL IRON BINDING CAPACITY 259 ug/dL (250-450)
[2020-06-05] MEDS ORDERED: ALBUMIN HUMAN 25GM/100ML (25%) IV SCH (14:00)
[2020-06-05] MEDS: FUROSEMIDE 40MG/4ML VIAL IVP SCH ×2 (14:13→21:10)
[2020-06-05 17:05] VITALS: BP 110/77
[2020-06-05 17:13] VITALS: BP 110/77
[2020-06-05] MEDS: APIXABAN 5 MG TABLET PO SCH (18:15)
[2020-06-05] MEDS: DILTIAZEM HCL 30MG TABLET PO SCH ×2 (18:15→21:10)
[2020-06-05 18:56] LABS: FERRITIN 180 ng/mL (22-322)
[2020-06-05 19:07] LABS: HEPATITIS B SURFACE ANTIGEN NEGATIVE
[2020-06-05 19:12] LABS: VITAMIN B12 SERUM >2000 pg/mL pg/mL (211-911)
[2020-06-05 19:37] LABS: HEPATITIS A AB IGM NEGATIVE (NEGATIVE)
[2020-06-05 20:00] VITALS: BP 112/87
[2020-06-05] MEDS ORDERED: DIPHENHYDRAMINE 50MG CAPSULE PO PRN (20:30)
[2020-06-05] MEDS: DIPHENHYDRAMINE 50MG CAPSULE PO PRN (21:10)
[2020-06-06] VITALS: BP 97/76
[2020-06-06] MEDS: MORPHINE SULFATE 2 MG/ML CPJ (NOT FOR IM USE) IV PRN ×3 (03:13→21:20)
[2020-06-06 04:00] VITALS: BP 99/76
[2020-06-06] MEDS: DILTIAZEM HCL 30MG TABLET PO SCH ×4 (06:00→21:15)
[2020-06-06] MEDS: OMEPRAZOLE 20MG CAPSULE EXTENDED RELEASE PO SCH ×2 (06:41→06:43)
[2020-06-06 06:47] LABS: BASOPHILS % 0.4 % (0.0-2.0); EOSINOPHILS % 0.1 % (0.0-5.0); HEMATOCRIT. 30.4 % (42.0-52.0); HEMOGLOBIN. 9.6 g/dL (14.0-18.0); LYMPHOCYTES % 7.3 % (20.0-50.0); MEAN CORPUSCULAR HEMOGLOBIN 28.7 pg (28.0-32.0); MEAN CORPUSCULAR VOLUME 90.8 fL (80.0-94.0); MEAN PLATELET VOLUME 10.8 fl (7.4-10.4); MONOCYTES % 13.3 % (2.0-8.0); NEUTROPHILS % 78.9 % (40.0-76.0); PLATELET 196 x1000/uL (130-400); RED BLOOD CELL COUNT 3.35 mill/uL (4.7-6.1); RED CELL DISTRIBUTION WIDTH 18.3 % (11.6-14.6)
[2020-06-06 07:11] LABS: PHOSPHORUS 5.8 mg/dL (2.5-4.9)
[2020-06-06 07:58] VITALS: BP 102/65
[2020-06-06] MEDS: APIXABAN 5 MG TABLET PO SCH ×4 (09:00→21:12)
[2020-06-06] MEDS: DOCUSATE SODIUM 100MG CAPSULE PO PRN ×2 (10:04→12:05)
[2020-06-06] MEDS ORDERED: ALBUMIN HUMAN 25GM/100ML (25%) IV NR (11:00)
[2020-06-06 12:00] VITALS: BP 100/68
[2020-06-06 15:55] VITALS: BP 98/76
[2020-06-06] MEDS: CEFEPIME 2,000 MG in DEXT 5% WATER 100 ML IV SCH (16:10)
[2020-06-06 20:17] VITALS: BP 102/67
[2020-06-07] VITALS (7 sets, daily range): BP systolic 90–110; BP diastolic 67–81
[2020-06-07] MEDS: CEFEPIME 2,000 MG in DEXT 5% WATER 100 ML IV SCH ×2 (04:08→16:43)
[2020-06-07] MEDS: DILTIAZEM HCL 30MG TABLET PO SCH ×3 (06:36→22:00)
[2020-06-07] MEDS: OMEPRAZOLE 20MG CAPSULE EXTENDED RELEASE PO SCH (06:44)
[2020-06-07 07:40] LABS: PHOSPHORUS 5.6 mg/dL (2.5-4.9)
[2020-06-07] MEDS: APIXABAN 5 MG TABLET PO SCH ×2 (08:58→16:43)
[2020-06-07] MEDS ORDERED: FUROSEMIDE 40MG/4ML VIAL IVP SCH (09:00)
[2020-06-07] MEDS: MORPHINE SULFATE 2 MG/ML CPJ (NOT FOR IM USE) IV PRN (09:53)
[2020-06-07 09:54] LABS: HEMATOCRIT. 31.4 % (42.0-52.0); HEMOGLOBIN. 9.8 g/dL (14.0-18.0); MEAN CORPUSCULAR HEMOGLOBIN 28.2 pg (28.0-32.0); MEAN CORPUSCULAR VOLUME 90.7 fL (80.0-94.0); MEAN PLATELET VOLUME 10.4 fl (7.4-10.4); PLATELET 219 x1000/uL (130-400); RED BLOOD CELL COUNT 3.46 mill/uL (4.7-6.1); RED CELL DISTRIBUTION WIDTH 18.5 % (11.6-14.6)
[2020-06-07] MEDS ORDERED: ALBUMIN HUMAN 25GM/100ML (25%) IV NR (11:30)
[2020-06-07] MEDS: SODIUM CHLORIDE 0.9% 1,000 ML IV SCH (11:44)
[2020-06-07 13:10] LABS: PLATELET ESTIMATE NORMAL
[2020-06-07] MEDS: IPRATROPIUM/ALBUTEROL 0.5-3(2.5)MG/3ML NEB HHN PRN (22:03)
[2020-06-08] VITALS: BP 103/69
[2020-06-08] MEDS: MORPHINE SULFATE 2 MG/ML CPJ (NOT FOR IM USE) IV PRN (00:27)
[2020-06-08 04:12] VITALS: BP 97/78
[2020-06-08] MEDS: CEFEPIME 2,000 MG in DEXT 5% WATER 100 ML IV SCH ×2 (04:57→16:31)
[2020-06-08] MEDS: DILTIAZEM HCL 30MG TABLET PO SCH ×2 (06:00→14:50)
[2020-06-08] MEDS: SODIUM CHLORIDE 0.9% 1,000 ML IV SCH (06:36)
[2020-06-08 06:51] LABS: HEMOGLOBIN. 9.5 g/dL (14.0-18.0); MEAN CORPUSCULAR HEMOGLOBIN 29.1 pg (28.0-32.0); MEAN CORPUSCULAR VOLUME 91.7 fL (80.0-94.0); MEAN PLATELET VOLUME 10.6 fl (7.4-10.4); PLATELET 202 x1000/uL (130-400); RED BLOOD CELL COUNT 3.27 mill/uL (4.7-6.1); RED CELL DISTRIBUTION WIDTH 18.8 % (11.6-14.6)
[2020-06-08 07:03] LABS: PHOSPHORUS 5.5 mg/dL (2.5-4.9)
[2020-06-08 08:00] VITALS: BP 106/76
[2020-06-08] MEDS: APIXABAN 5 MG TABLET PO SCH (08:21)
[2020-06-08] MEDS ORDERED: LIDOCAINE HCL 1% 20ML VIAL (Pyxis) INJ ONE ×2 (09:59→11:42)
[2020-06-08] MEDS ORDERED: SODIUM BICARBONATE 4% (2.4MEQ) 5ML VIAL IV ONE (11:44)
[2020-06-08 12:00] VITALS: BP 105/68
[2020-06-08 13:09] LABS: PLATELET ESTIMATE NORMAL
[2020-06-08 16:00] VITALS: BP 126/66
[2020-06-08] MEDS: ENOXAPARIN 100MG/ML SYR SUBCUT SCH (18:00)
[2020-06-08 20:00] VITALS: BP 102/76
[2020-06-08] MEDS: HYDROCODONE/ACETAMINOPHEN 5/325MG TABLET PO PRN (21:53)
[2020-06-09] VITALS: BP 101/66
[2020-06-09 04:00] VITALS: BP 113/59
[2020-06-09 08:00] VITALS: BP 108/67
[2020-06-09] MEDS: DILTIAZEM HCL 30MG TABLET PO SCH ×3 (09:07→21:58)
[2020-06-09] MEDS: HYDROCODONE/ACETAMINOPHEN 5/325MG TABLET PO PRN ×2 (09:07→17:46)
[2020-06-09] MEDS: CEFEPIME 2,000 MG in DEXT 5% WATER 100 ML IV SCH (09:11)
[2020-06-09 10:46] LABS: HEMATOCRIT. 31.9 % (42.0-52.0); MEAN CORPUSCULAR HEMOGLOBIN 28.8 pg (28.0-32.0); MEAN CORPUSCULAR VOLUME 92.1 fL (80.0-94.0); MEAN PLATELET VOLUME 10.4 fl (7.4-10.4); PLATELET 173 x1000/uL (130-400); RED BLOOD CELL COUNT 3.47 mill/uL (4.7-6.1); RED CELL DISTRIBUTION WIDTH 18.5 % (11.6-14.6)
[2020-06-09 11:00] LABS: PHOSPHORUS 3.3 mg/dL (2.5-4.9)
[2020-06-09 12:00] VITALS: BP 139/99
[2020-06-09 16:00] VITALS: BP 127/75
[2020-06-09 17:55] LABS: PLATELET ESTIMATE NORMAL
[2020-06-09] MEDS: ENOXAPARIN 100MG/ML SYR SUBCUT SCH ×2 (18:00→21:38)
[2020-06-09 20:00] VITALS: BP 111/77
[2020-06-09] MEDS: HYDROCORTISONE 1% RECTAL CREAM 30GM PR SCH (21:36)
[2020-06-10] VITALS: BP 112/84
[2020-06-10 04:00] VITALS: BP 106/72
[2020-06-10] MEDS: DILTIAZEM HCL 30MG TABLET PO SCH ×3 (06:07→21:29)
[2020-06-10] MEDS: CEFEPIME 2,000 MG in DEXT 5% WATER 100 ML IV SCH (06:08)
[2020-06-10] MEDS: HYDROCODONE/ACETAMINOPHEN 5/325MG TABLET PO PRN ×2 (06:09→13:43)
[2020-06-10 06:23] LABS: HEMATOCRIT. 30.3 % (42.0-52.0); HEMOGLOBIN. 9.8 g/dL (14.0-18.0); MEAN CORPUSCULAR HEMOGLOBIN 29.2 pg (28.0-32.0); MEAN CORPUSCULAR VOLUME 90.2 fL (80.0-94.0); MEAN PLATELET VOLUME 10.3 fl (7.4-10.4); PLATELET 154 x1000/uL (130-400); RED BLOOD CELL COUNT 3.36 mill/uL (4.7-6.1); RED CELL DISTRIBUTION WIDTH 18.9 % (11.6-14.6)
[2020-06-10 06:27] LABS: PHOSPHORUS 3.7 mg/dL (2.5-4.9)
[2020-06-10] MEDS: ENOXAPARIN 100MG/ML SYR SUBCUT SCH ×2 (09:00→21:00)
[2020-06-10] MEDS: HYDROCORTISONE 1% RECTAL CREAM 30GM PR SCH (09:03)
[2020-06-10 12:00] VITALS: BP 104/84
[2020-06-10 16:00] VITALS: BP 98/76
[2020-06-10 20:00] VITALS: BP 101/73
[2020-06-10 21:19] LABS: PLATELET ESTIMATE NORMAL
[2020-06-11] VITALS: BP 114/83
[2020-06-11] MEDS: HYDROCORTISONE 1% RECTAL CREAM 30GM PR SCH ×3 (00:34→20:59)
[2020-06-11 04:00] VITALS: BP 122/106
[2020-06-11] MEDS: IPRATROPIUM/ALBUTEROL 0.5-3(2.5)MG/3ML NEB HHN PRN (04:02)
[2020-06-11] MEDS: DILTIAZEM HCL 30MG TABLET PO SCH ×4 (06:10→20:59)
[2020-06-11] MEDS: HYDROCODONE/ACETAMINOPHEN 5/325MG TABLET PO PRN ×3 (06:10→23:39)
[2020-06-11] MEDS: CEFEPIME 2,000 MG in DEXT 5% WATER 100 ML IV SCH (06:10)
[2020-06-11 06:57] LABS: HEMOGLOBIN. 9.7 g/dL (14.0-18.0); MEAN CORPUSCULAR HEMOGLOBIN 28.5 pg (28.0-32.0); MEAN CORPUSCULAR VOLUME 90.8 fL (80.0-94.0); MEAN PLATELET VOLUME 10.1 fl (7.4-10.4); PLATELET 137 x1000/uL (130-400); RED BLOOD CELL COUNT 3.41 mill/uL (4.7-6.1); RED CELL DISTRIBUTION WIDTH 18.4 % (11.6-14.6)
[2020-06-11 07:03] LABS: PHOSPHORUS 3.1 mg/dL (2.5-4.9)
[2020-06-11 08:12] VITALS: BP 102/63
[2020-06-11] MEDS: ENOXAPARIN 100MG/ML SYR SUBCUT SCH ×2 (09:00→21:00)
[2020-06-11 12:08] VITALS: BP 102/76
[2020-06-11] MEDS: DIPHENHYDRAMINE 50MG CAPSULE PO PRN (12:29)
[2020-06-11 16:07] VITALS: BP_SYST 102; BP_SYST 150; BP_DIAS 78; BP_DIAS 84
[2020-06-11 16:26] LABS: PLATELET ESTIMATE NORMAL
[2020-06-11 20:17] VITALS: BP 116/84
[2020-06-12] MEDS: IPRATROPIUM/ALBUTEROL 0.5-3(2.5)MG/3ML NEB HHN PRN (00:04)
[2020-06-12 00:29] VITALS: BP 98/73
[2020-06-12 04:00] VITALS: BP 105/79
[2020-06-12] MEDS: CEFEPIME 2,000 MG in DEXT 5% WATER 100 ML IV SCH (05:47)
[2020-06-12] MEDS: DILTIAZEM HCL 30MG TABLET PO SCH ×3 (05:48→22:00)
[2020-06-12 06:53] LABS: INR 1.2; PROTHROMBIN TIME 12.6 sec (9.6-11.0)
[2020-06-12 06:55] LABS: PHOSPHORUS 4.1 mg/dL (2.5-4.9)
[2020-06-12 07:15] LABS: HEMOGLOBIN. 10.1 g/dL (14.0-18.0); MEAN CORPUSCULAR HEMOGLOBIN 28.3 pg (28.0-32.0); MEAN CORPUSCULAR VOLUME 89.9 fL (80.0-94.0); MEAN PLATELET VOLUME 10.6 fl (7.4-10.4); PLATELET 140 x1000/uL (130-400); RED BLOOD CELL COUNT 3.56 mill/uL (4.7-6.1); RED CELL DISTRIBUTION WIDTH 18.2 % (11.6-14.6)
[2020-06-12 07:59] VITALS: BP 108/81
[2020-06-12] MEDS: HYDROCORTISONE 1% RECTAL CREAM 30GM PR SCH ×2 (09:00→21:12)
[2020-06-12] MEDS: ENOXAPARIN 100MG/ML SYR SUBCUT SCH ×2 (09:00→21:00)
[2020-06-12] MEDS: FUROSEMIDE 100MG/10ML VIAL IVP SCH (10:00)
[2020-06-12] MEDS ORDERED: SODIUM POLYSTYRENE SULFONATE 15 G/60 ML BOT PO SCH (11:00)
[2020-06-12] MEDS: HYDROCODONE/ACETAMINOPHEN 5/325MG TABLET PO PRN ×2 (11:05→21:15)
[2020-06-12 11:46] VITALS: BP 114/79
[2020-06-12 14:07] LABS: PLATELET ESTIMATE NORMAL
[2020-06-12 20:00] VITALS: BP 102/75
[2020-06-13] VITALS: BP 110/73
[2020-06-13 04:00] VITALS: BP 100/77
[2020-06-13] MEDS: DILTIAZEM HCL 30MG TABLET PO SCH ×3 (06:00→22:00)
[2020-06-13] MEDS: CEFEPIME 2,000 MG in DEXT 5% WATER 100 ML IV SCH (06:18)
[2020-06-13 06:42] LABS: BASOPHILS % 0.7 % (0.0-2.0); EOSINOPHILS % 0.1 % (0.0-5.0); HEMATOCRIT. 30.4 % (42.0-52.0); HEMOGLOBIN. 9.5 g/dL (14.0-18.0); LYMPHOCYTES % 7.5 % (20.0-50.0); MEAN CORPUSCULAR HEMOGLOBIN 28.3 pg (28.0-32.0); MEAN CORPUSCULAR VOLUME 90.7 fL (80.0-94.0); MEAN PLATELET VOLUME 10.4 fl (7.4-10.4); MONOCYTES % 14.5 % (2.0-8.0); NEUTROPHILS % 77.2 % (40.0-76.0); PLATELET 143 x1000/uL (130-400); RED BLOOD CELL COUNT 3.35 mill/uL (4.7-6.1); RED CELL DISTRIBUTION WIDTH 18.6 % (11.6-14.6)
[2020-06-13 06:58] LABS: PHOSPHORUS 3.6 mg/dL (2.5-4.9)
[2020-06-13 08:00] VITALS: BP 101/73
[2020-06-13] MEDS: ENOXAPARIN 100MG/ML SYR SUBCUT SCH ×2 (09:00→21:00)
[2020-06-13] MEDS: HYDROCORTISONE 1% RECTAL CREAM 30GM PR SCH ×2 (09:30→21:22)
[2020-06-13] MEDS: FUROSEMIDE 100MG/10ML VIAL IVP SCH (09:30)
[2020-06-13] MEDS: HYDROCODONE/ACETAMINOPHEN 5/325MG TABLET PO PRN (11:12)
[2020-06-13 12:00] VITALS: BP 110/74
[2020-06-13] MEDS: DIPHENHYDRAMINE 50MG CAPSULE PO PRN (13:02)
[2020-06-13 16:00] VITALS: BP 117/81
[2020-06-13] MEDS: IPRATROPIUM/ALBUTEROL 0.5-3(2.5)MG/3ML NEB HHN PRN (16:20)
[2020-06-13 20:00] VITALS: BP 104/82
[2020-06-14] VITALS: BP 99/61
[2020-06-14] MEDS: HYDROCODONE/ACETAMINOPHEN 5/325MG TABLET PO PRN ×3 (00:50→22:00)
[2020-06-14 04:00] VITALS: BP 109/51
[2020-06-14] MEDS: DILTIAZEM HCL 30MG TABLET PO SCH ×3 (06:00→21:56)
[2020-06-14] MEDS: CEFTRIAXONE 2 G in DEXTROSE 5% WATER 50 ML IV SCH (06:12)
[2020-06-14 06:51] LABS: HEMATOCRIT. 29.6 % (42.0-52.0); HEMOGLOBIN. 9.3 g/dL (14.0-18.0); MEAN CORPUSCULAR HEMOGLOBIN 28.3 pg (28.0-32.0); MEAN CORPUSCULAR VOLUME 89.9 fL (80.0-94.0); MEAN PLATELET VOLUME 10.1 fl (7.4-10.4); PLATELET 133 x1000/uL (130-400); RED CELL DISTRIBUTION WIDTH 18.7 % (11.6-14.6)
[2020-06-14 07:16] LABS: CHLORIDE 102 mEq/L (98-107)
[2020-06-14 08:00] VITALS: BP 103/83
[2020-06-14] MEDS: ENOXAPARIN 100MG/ML SYR SUBCUT SCH ×2 (09:00→21:00)
[2020-06-14] MEDS: HYDROCORTISONE 1% RECTAL CREAM 30GM PR SCH ×2 (09:30→21:00)
[2020-06-14] MEDS: FUROSEMIDE 100MG/10ML VIAL IVP SCH (09:31)
[2020-06-14 12:00] VITALS: BP 100/73
[2020-06-14 15:16] LABS: NUCLEATED RED BLOOD CELLS 1 /100 WBC; PLATELET ESTIMATE NORMAL
[2020-06-14 16:00] VITALS: BP 111/78
[2020-06-14 20:00] VITALS: BP 111/84
[2020-06-15] VITALS: BP 108/80
[2020-06-15] MEDS: IPRATROPIUM/ALBUTEROL 0.5-3(2.5)MG/3ML NEB HHN PRN (02:27)
[2020-06-15 04:00] VITALS: BP 98/69
[2020-06-15 06:00] LABS: HEMATOCRIT. 29.4 % (42.0-52.0); HEMOGLOBIN. 9.2 g/dL (14.0-18.0); MEAN CORPUSCULAR HEMOGLOBIN 28.5 pg (28.0-32.0); MEAN PLATELET VOLUME 10.5 fl (7.4-10.4); PLATELET 132 x1000/uL (130-400); RED BLOOD CELL COUNT 3.23 mill/uL (4.7-6.1); RED CELL DISTRIBUTION WIDTH 18.4 % (11.6-14.6)
[2020-06-15] MEDS: DILTIAZEM HCL 30MG TABLET PO SCH ×3 (06:00→22:05)
[2020-06-15] MEDS: CEFTRIAXONE 2 G in DEXTROSE 5% WATER 50 ML IV SCH (06:10)
[2020-06-15 06:20] LABS: PHOSPHORUS 2.7 mg/dL (2.5-4.9)
[2020-06-15] MEDS: HYDROCODONE/ACETAMINOPHEN 5/325MG TABLET PO PRN (06:54)
[2020-06-15 08:00] VITALS: BP 102/76
[2020-06-15] MEDS: ENOXAPARIN 100MG/ML SYR SUBCUT SCH (09:00)
[2020-06-15] MEDS: HYDROCORTISONE 1% RECTAL CREAM 30GM PR SCH ×2 (09:15→21:00)
[2020-06-15] MEDS: FUROSEMIDE 100MG/10ML VIAL IVP SCH (09:15)
[2020-06-15 12:30] VITALS: BP 131/108
[2020-06-15] MEDS: HYDROCODONE/ACETAMINOPHEN 10/325MG TABLET PO PRN ×2 (13:09→22:11)
[2020-06-15 13:27] LABS: PLATELET ESTIMATE NORMAL
[2020-06-15 16:00] VITALS: BP 100/70
[2020-06-15 20:00] VITALS: BP 111/72
[2020-06-16] VITALS (7 sets, daily range): BP systolic 95–106; BP diastolic 66–78
[2020-06-16] MEDS: DILTIAZEM HCL 30MG TABLET PO SCH ×3 (06:12→21:03)
[2020-06-16] MEDS: CEFTRIAXONE 2 G in DEXTROSE 5% WATER 50 ML IV SCH (06:13)
[2020-06-16 06:52] LABS: HEMATOCRIT. 30.2 % (42.0-52.0); HEMOGLOBIN. 9.5 g/dL (14.0-18.0); MEAN CORPUSCULAR HEMOGLOBIN 28.4 pg (28.0-32.0); MEAN PLATELET VOLUME 10.7 fl (7.4-10.4); PLATELET 156 x1000/uL (130-400); RED BLOOD CELL COUNT 3.35 mill/uL (4.7-6.1); RED CELL DISTRIBUTION WIDTH 18.4 % (11.6-14.6)
[2020-06-16] MEDS: HYDROCORTISONE 1% RECTAL CREAM 30GM PR SCH ×2 (09:01→21:00)
[2020-06-16] MEDS: FUROSEMIDE 100MG/10ML VIAL IVP SCH (09:01)
[2020-06-16 12:56] LABS: PLATELET ESTIMATE NORMAL
[2020-06-16] MEDS: HYDROCODONE/ACETAMINOPHEN 10/325MG TABLET PO PRN (21:02)
[2020-06-17] VITALS (13 sets, daily range): BP systolic 99–113; BP diastolic 60–85
[2020-06-17] MEDS: DILTIAZEM HCL 30MG TABLET PO SCH (06:20)
[2020-06-17] MEDS: CEFTRIAXONE 2 G in DEXTROSE 5% WATER 50 ML IV SCH (06:20)
[2020-06-17] MEDS: FUROSEMIDE 100MG/10ML VIAL IVP SCH (09:28)
[2020-06-17] MEDS: HYDROCORTISONE 1% RECTAL CREAM 30GM PR SCH (09:28)
[2020-06-17 09:30] LABS: BASOPHILS % 0.6 % (0.0-2.0); EOSINOPHILS % 0.5 % (0.0-5.0); HEMATOCRIT. 30.2 % (42.0-52.0); HEMOGLOBIN. 9.5 g/dL (14.0-18.0); LYMPHOCYTES % 7.4 % (20.0-50.0); MEAN CORPUSCULAR HEMOGLOBIN 27.9 pg (28.0-32.0); MEAN CORPUSCULAR VOLUME 88.9 fL (80.0-94.0); MEAN PLATELET VOLUME 10.5 fl (7.4-10.4); MONOCYTES % 13.4 % (2.0-8.0); NEUTROPHILS % 78.1 % (40.0-76.0); PLATELET 164 x1000/uL (130-400); RED CELL DISTRIBUTION WIDTH 18.7 % (11.6-14.6)
[2020-06-17 10:09] LABS: PHOSPHORUS 3.7 mg/dL (2.5-4.9)
[2020-06-17] MEDS: IPRATROPIUM/ALBUTEROL 0.5-3(2.5)MG/3ML NEB HHN PRN ×2 (10:12→15:01)
[2020-06-17] MEDS ORDERED: LIDOCAINE HCL 1% 20ML VIAL (Pyxis) INJ ONE (12:14)
[2020-06-17] MEDS ORDERED: DILT120C88 MT (12:47)
[2020-06-17] MEDS ORDERED: APIX2.5T MT ×2 (12:47)
[2020-06-17] MEDS ORDERED: FURO-151 MT (12:47)
[2020-06-17] MEDS ORDERED: HEPARIN 1000 UNITS/ML 10ML ONE (13:09)
[2020-06-17] MEDS ORDERED: APIX5TAB PO (13:17)
[2020-06-17] MEDS ORDERED: HYDR-4009 MT (14:16)
[2020-06-17] MEDS ORDERED: APIXABAN 5 MG TABLET PO SCH (17:00)
[2020-06-17] MEDS ORDERED: APIXABAN 2.5 MG TABLET PO SCH (17:00)
== END 2020-06-17 16:19 | disposition home or self-care (01) | DRG 720 ==
LOC: ER 02:46 → 6WST 05:01 → EDBEDREQ 05:08 → ENRESERV 14:28
PROVIDERS: ADMIT Internal Medicine; ATTEND Internal Medicine
PROC: 0JBP0ZZ Excision of Left Lower Leg Subcutaneous Tissue and Fascia, Open Approach (ICD-10-PCS; principal; 2020-06-08)
PROC: 0JBN0ZZ Excision of Right Lower Leg Subcutaneous Tissue and Fascia, Open Approach (ICD-10-PCS; 2020-06-08)
PROC: 02HV33Z Insertion of Infusion Device into Superior Vena Cava, Percutaneous Approach (ICD-10-PCS; 2020-06-08)
PROC: B5181ZA Fluoroscopy of Superior Vena Cava using Low Osmolar Contrast, Guidance (ICD-10-PCS; 2020-06-08)
PROC: B548ZZA Ultrasonography of Superior Vena Cava, Guidance (ICD-10-PCS; 2020-06-08)
PROC: 0W9G3ZZ Drainage of Peritoneal Cavity, Percutaneous Approach (ICD-10-PCS; 2020-06-08)
PROC: 0JBP0ZZ Excision of Left Lower Leg Subcutaneous Tissue and Fascia, Open Approach (ICD-10-PCS; 2020-06-15)
PROC: 0JBN0ZZ Excision of Right Lower Leg Subcutaneous Tissue and Fascia, Open Approach (ICD-10-PCS; 2020-06-15)
PROC: 0JH63XZ Insertion of Tunneled Vascular Access Device into Chest Subcutaneous Tissue and Fascia, Percutaneous Approach (ICD-10-PCS; 2020-06-17)
PROC: 02HV33Z Insertion of Infusion Device into Superior Vena Cava, Percutaneous Approach (ICD-10-PCS; 2020-06-17)
PROC: B5181ZA Fluoroscopy of Superior Vena Cava using Low Osmolar Contrast, Guidance (ICD-10-PCS; 2020-06-17)
DX: A41.9 Sepsis, unspecified organism (principal); J96.20 Acute and chronic respiratory failure, unspecified whether with hypoxia or hypercapnia; E43 Unspecified severe protein-calorie malnutrition; I13.0 Hypertensive heart and chronic kidney disease with heart failure and stage 1 through stage 4 chronic kidney disease, or unspecified chronic kidney disease; I50.33 Acute on chronic diastolic (congestive) heart failure; I48.20 Chronic atrial fibrillation, unspecified; N17.9 Acute kidney failure, unspecified; N18.30 Chronic kidney disease, stage 3 unspecified; E87.1 Hypo-osmolality and hyponatremia; E66.9 Obesity, unspecified; E83.39 Other disorders of phosphorus metabolism; Z68.41 Body mass index [BMI] 40.0-44.9, adult; J44.9 Chronic obstructive pulmonary disease, unspecified; R18.8 Other ascites; Z20.822 Contact with and (suspected) exposure to COVID-19; D64.9 Anemia, unspecified; J18.9 Pneumonia, unspecified organism; F10.10 Alcohol abuse, uncomplicated; E87.5 Hyperkalemia; I27.20 Pulmonary hypertension, unspecified; I33.0 Acute and subacute infective endocarditis; B96.89 Other specified bacterial agents as the cause of diseases classified elsewhere; I87.8 Other specified disorders of veins; I34.0 Nonrheumatic mitral (valve) insufficiency; E87.2 Acidosis; R65.20 Severe sepsis without septic shock; I73.9 Peripheral vascular disease, unspecified; R68.0 Hypothermia, not associated with low environmental temperature; J98.11 Atelectasis; Z95.2 Presence of prosthetic heart valve; Z87.891 Personal history of nicotine dependence; Z82.49 Family history of ischemic heart disease and other diseases of the circulatory system
CPT/HCPCS: 36415; 36556; 36558; 36589; 49083; 71045; 76700; 76770; 76937; 77001; 80048; 80053; 80061; 80076; 81003; 82040; 82248; 82607; 82728; 82746; 82977; 83540; 83550; 83605; 83735; 83880; 84100; 84145; 84439; 84443; 84480; 84484; 85025; 86160; 86705; 86709; 86803; 87340; 87426; 88108; 88312; 93005; 93306; 93970; 94640; 97110; 97116; 97162; 97166; 97530; 97535; 99291; A6261; C1750; C1752; C1769; J0692; J0696; J1642; J1644; J1650; J1940; J2270; J2405; J3490; J7030; J7040; J7060; P9047; Q0163

== ENCOUNTER 2021-09-06 15:35 | Emergency (ER) | payer MEDICAID ==
[~2021-09-06] VITALS: Ht 172.7 cm; Wt 81.0 kg
[~2021-09-06 15:35] MED LIST changes: +HYDR-4009 MT; +LISI-186 PO
[2021-09-06 17:26] LABS: BASOPHILS % 0.8 % (0.0-2.0); HEMATOCRIT. 39.6 % (42.0-52.0); LYMPHOCYTES % 25.6 % (20.0-50.0); MEAN CORPUSCULAR VOLUME 103.7 fL (80.0-94.0); MEAN PLATELET VOLUME 10.1 fl (7.4-10.4); MONOCYTES % 11.8 % (2.0-8.0); NEUTROPHILS % 58.8 % (40.0-76.0); PLATELET 134 x1000/uL (130-400); RED BLOOD CELL COUNT 3.82 mill/uL (4.7-6.1); RED CELL DISTRIBUTION WIDTH 14.9 % (11.6-14.6)
[2021-09-06 17:30] VITALS: BP 151/88
[2021-09-06 17:37] LABS: CHLORIDE 111 mEq/L (98-107)
== END 2021-09-06 19:16 | disposition home or self-care (01) ==
LOC: ER 15:35
DX: R06.02 Shortness of breath (principal); I50.9 Heart failure, unspecified; N28.9 Disorder of kidney and ureter, unspecified; Z95.1 Presence of aortocoronary bypass graft
CPT/HCPCS: 36415; 71045; 80053; 83880; 84484; 85025; 93005; 99285

== ENCOUNTER 2023-06-17 03:56 | Inpatient (IN) | payer MEDICAID ==
[~2023-06-17] VITALS: Ht 182.9 cm; Wt 94.8 kg
[~2023-06-17 03:56] MED LIST changes: -APIX5TAB PO; +ATOR40TA70 PO; +COR3 PO; -DILT120C88 MT; +EMPA25TA PO; -FURO-151 MT; +FURO80TA3 PO; -HYDR-4009 MT; -LISI-186 PO; +RIFA550T PO; +SPIR25TA6 PO; +THIA100T72 PO; +WARF-53 PO
[2023-06-17 05:26] LABS: BASOPHILS % 0.7 % (0.0-2.0); DIFFERENTIAL COMMENT 0; EOSINOPHILS % 1.4 % (0.0-5.0); HEMATOCRIT. 33.1 % (42.0-52.0); HEMOGLOBIN. 11.1 g/dL (14.0-18.0); LYMPHOCYTES % 22.3 % (20.0-50.0); MEAN CORPUSCULAR HGB CONC 33.4 g/dL (31.0-37.0); MEAN CORPUSCULAR VOLUME 101.7 fL (80.0-94.0); MEAN PLATELET VOLUME 10.7 fl (7.4-10.4); MONOCYTES % 9.5 % (2.0-8.0); NEUTROPHILS % 66.1 % (40.0-76.0); PLATELET 212 x1000/uL (130-400); RED BLOOD CELL COUNT 3.26 mill/uL (4.7-6.1); RED CELL DISTRIBUTION WIDTH 14.8 % (11.6-14.6); WHITE BLOOD COUNT 9.7 x1000/uL (4.5-11.0)
[2023-06-17] MEDS: MORPHINE SULFATE 4 MG/ML INJ (FOR IV/IM USE) IV STA (05:32)
[2023-06-17] MEDS: ONDANSETRON HCL 4MG/2ML INJ IV STA (05:33)
[2023-06-17 05:48] LABS: INR 1.3
[2023-06-17 05:54] LABS: ALANINE AMINOTRANSFERASE 20 IU/L (10-49); ALBUMIN 3.7 g/dL (3.2-4.8); ASPARTATE AMINOTRANSFERASE 81 IU/L (<34); BILIRUBIN TOTAL 3.2 mg/dL (0.1-1.0); CALCIUM 8.2 mg/dL (8.7-10.4); CARBON DIOXIDE 23 mEq/L (21-32); CHLORIDE 103 mEq/L (98-107); ETHANOL BLOOD 284 mg/dL (<10); GLUCOSE 105 mg/dL (70-105); POTASSIUM 3.5 mEq/L (3.5-5.1); PROTEIN TOTAL 7.6 g/dL (6.0-8.3); SODIUM 132 mEq/L (136-145); TROPONIN I HIGH SENSITIVITY 18 ng/L (3.0-53); UREA NITROGEN BLOOD 9 mg/dL (9-23)
[2023-06-17] MEDS: IOHEXOL-300 100 ML BOTTLE ONE (07:16)
[2023-06-17 08:44] LABS: TROPONIN I HIGH SENSITIVITY 19 ng/L (3.0-53)
[2023-06-17 15:59] VITALS: BP 135/95; PULSE 95; RESP 18; TEMP 97.5
[2023-06-17 16:00] VITALS: BP 135/95; PULSE 95; RESP 18; TEMP 97.5
[2023-06-17] MEDS: FUROSEMIDE 40MG TABLET PO SCH (18:05)
[2023-06-17 20:00] VITALS: BP 108/75; PULSE 99; RESP 20; TEMP 97.9
[2023-06-17] MEDS ORDERED: ONDANSETRON HCL 4MG/2ML INJ IV PRN (20:00)
[2023-06-17] MEDS ORDERED: ACETAMINOPHEN 325MG TABLET PO PRN (20:00)
[2023-06-17] MEDS ORDERED: NALOXONE HCL 0.4MG/ML VIAL IV PRN (20:15)
[2023-06-17] MEDS: HYDROCODONE/ACETAMINOPHEN 10/325MG TABLET PO PRN (21:36)
[2023-06-18] VITALS: BP 110/69; PULSE 95; RESP 20; TEMP 97.9
[2023-06-18 07:59] VITALS: BP 129/86; PULSE 95; RESP 20; TEMP 97.3
[2023-06-18] MEDS: LOSARTAN 50 MG TABLET PO SCH (08:20)
[2023-06-18] MEDS: ASPIRIN 81MG TABLET PO SCH (08:20)
[2023-06-18 12:02] VITALS: BP 118/89; PULSE 90; RESP 20; TEMP 98.1
[2023-06-18] MEDS: ENOXAPARIN 40MG/0.4ML SYR SUBCUT SCH (15:00)
[2023-06-18 16:03] VITALS: BP 117/83; PULSE 90; RESP 20; TEMP 98.3
[2023-06-18 20:00] VITALS: BP 117/76; PULSE 93; RESP 20; TEMP 98.2
[2023-06-19] VITALS: BP 119/76; PULSE 92; RESP 19; TEMP 97.8
[2023-06-19 04:00] VITALS: BP 116/77; PULSE 87; RESP 19; TEMP 98
[2023-06-19 08:00] VITALS: BP 116/89; PULSE 94; RESP 16; TEMP 97.7
[2023-06-19 12:00] VITALS: BP 116/86; PULSE 95; RESP 16; TEMP 97.3
[2023-06-19] MEDS: SPIRONOLACTONE 12.5MG TABLET PO SCH (13:48)
[2023-06-19] MEDS: FUROSEMIDE 40MG/4ML VIAL IVP NR (13:49)
[2023-06-19 16:00] VITALS: BP 109/72; PULSE 90; RESP 14; TEMP 97.2
[2023-06-19] MEDS: METOLAZONE 2.5MG TABLET PO NR (17:04)
[2023-06-19 20:00] VITALS: BP 100/41; PULSE 90; RESP 19; TEMP 97.9
[2023-06-19] MEDS: METOPROLOL TARTRATE 25MG TABLET PO SCH (21:00)
[2023-06-20] VITALS: BP 94/61; PULSE 93; RESP 19; TEMP 98.4
[2023-06-20 04:00] VITALS: BP 90/61; PULSE 89; RESP 20; TEMP 97.9
[2023-06-20 06:58] VITALS: BP 93/64; PULSE 64; TEMP 97.4; O2SAT 95
[2023-06-20 08:00] VITALS: BP 93/64; PULSE 64; RESP 19; TEMP 97.4
[2023-06-20] MEDS: METOLAZONE 2.5MG TABLET PO SCH (08:31)
[2023-06-20 08:34] VITALS: PULSE 64
[2023-06-20] MEDS: LOSARTAN 25 MG TABLET PO SCH (08:34)
[2023-06-20] MEDS ORDERED: SPIRONOLACTONE 12.5MG TABLET PO SCH (09:00)
== END 2023-06-20 09:50 | disposition home or self-care (01) | DRG 133 ==
LOC: ER 03:56 → 7EST 06:10
PROVIDERS: ADMIT Internal Medicine; ATTEND Internal Medicine
DX: J96.21 Acute and chronic respiratory failure with hypoxia (principal); I50.23 Acute on chronic systolic (congestive) heart failure; I42.6 Alcoholic cardiomyopathy; K74.60 Unspecified cirrhosis of liver; I48.19 Other persistent atrial fibrillation; D50.9 Iron deficiency anemia, unspecified; F10.229 Alcohol dependence with intoxication, unspecified; F17.210 Nicotine dependence, cigarettes, uncomplicated; I11.0 Hypertensive heart disease with heart failure; Z79.01 Long term (current) use of anticoagulants; Z95.1 Presence of aortocoronary bypass graft; Z95.3 Presence of xenogenic heart valve; Z91.199 Patient's noncompliance with other medical treatment and regimen due to unspecified reason; Y90.8 Blood alcohol level of 240 mg/100 ml or more
CPT/HCPCS: 36415; 71045; 74177; 80053; 80320; 83605; 83880; 84484; 85025; 86850; 86900; 93005; 93306; 99285; C1893; J1650; J1940; J2270; J2405; Q9967; G0480

== ENCOUNTER 2024-07-15 15:51 | Inpatient (IN) | payer MEDICAID ==
[~2024-07-15] VITALS: Ht 177.8 cm; Wt 90.8 kg
[~2024-07-15 15:51] MED LIST changes: -COR3 PO; +FOLI-43 PO; +FURO40TA5 PO; -FURO80TA3 PO; +FURO80TA87 PO; +LISI20TA31 PO; +METO-396 PO; +NICO-645 TP; +PANT40TA51 MT; -RIFA550T PO; +RIVA20TA PO; -WARF-53 PO
[2024-07-15 16:32] LABS: HEMATOCRIT. 25.3 % (42.0-52.0); HEMOGLOBIN. 7.9 g/dL (14.0-18.0); MEAN CORPUSCULAR HEMOGLOBIN 28.2 pg (28.0-32.0); MEAN CORPUSCULAR HGB CONC 31.3 g/dL (31.0-37.0); MEAN CORPUSCULAR VOLUME 90.2 fL (80.0-94.0); MEAN PLATELET VOLUME 10.6 fl (7.4-10.4); PLATELET 271 x1000/uL (130-400); RED CELL DISTRIBUTION WIDTH 21.4 % (11.6-14.6); WHITE BLOOD COUNT 8.4 x1000/uL (4.5-11.0)
[2024-07-15 16:34] LABS: DIFFERENTIAL COMMENT 1
[2024-07-15 16:40] LABS: CHLORIDE 107 mEq/L (98-107); POTASSIUM 5.6 mEq/L (3.5-5.1); SODIUM 137 mEq/L (136-145)
[2024-07-15 16:41] LABS: CALCIUM 8.2 mg/dL (8.7-10.4); CARBON DIOXIDE 21 mEq/L (21-32)
[2024-07-15 16:46] LABS: CREATININE 0.9 mg/dL (0.6-1.3); GLUCOSE 95 mg/dL (70-105); UREA NITROGEN BLOOD 5 mg/dL (9-23)
[2024-07-15 16:47] LABS: ETHANOL BLOOD 300 mg/dL (<10); TROPONIN I HIGH SENSITIVITY 16 ng/L (3.0-53)
[2024-07-15 16:48] LABS: ALANINE AMINOTRANSFERASE 22 IU/L (10-49); ALBUMIN 3.7 g/dL (3.2-4.8); ASPARTATE AMINOTRANSFERASE 119 IU/L (<34); BILIRUBIN DIRECT 1.8 mg/dL (<=3.0); BILIRUBIN TOTAL 3.2 mg/dL (0.1-1.0); PROTEIN TOTAL 8.2 g/dL (6.0-8.3)
[2024-07-15] MEDS: FUROSEMIDE 40MG/4ML VIAL IVP ONE (16:56)
[2024-07-15 17:13] LABS: ANISOCYTOSIS 1+; PLATELET ESTIMATE NORMAL
[2024-07-15 17:14] LABS: GIANT PLATELETS FEW; HYPOCHROMASIA 1+
[2024-07-15] MEDS: INSULIN REGULAR (HUMULIN R) 1000UNITS/10ML VIAL IV ONE (17:15)
[2024-07-15] MEDS ORDERED: CALCIUM GLUCONATE 1,000 MG in DEXT 5% WATER 100 ML IV ONE (17:15)
[2024-07-15] MEDS: DEXTROSE 50% WATER 50ML SYRINGE IV ONE (17:15)
[2024-07-15 17:21] LABS: INR 1.1; PARTIAL THROMBOPLASTIN TIME 26.2 sec (23.4-31.0); PROTHROMBIN TIME 11.6 sec (9.6-11.0)
[2024-07-15] MEDS: ALBUTEROL (0.083%) 2.5MG/3ML NEB HHN SCH (17:30)
[2024-07-15] MEDS: CALCIUM GLUCONATE 1GM PREMIX 50 ML IV SCH (18:00)
[2024-07-15 18:02] LABS: POTASSIUM 3.9 mEq/L (3.5-5.1)
[2024-07-15 18:08] LABS: CLARITY URINE CLEAR (CLEAR); COLOR URINE YELLOW (YELLOW); GLUCOSE URINE NEGATIVE (NEGATIVE); KETONES URINE NEGATIVE (NEGATIVE); LEUKOCYTE ESTERASE URINE NEGATIVE (NEGATIVE); NITRITE URINE NEGATIVE (NEGATIVE); OCCULT BLOOD URINE NEGATIVE (NEGATIVE); PH URINE 6.5 (4.5-8.0); PROTEIN URINE NEGATIVE (NEGATIVE); SPECIFIC GRAVITY URINE 1.006 (1.005-1.030)
[2024-07-15] MEDS ORDERED: ACETAMINOPHEN 325MG TABLET PO PRN ×2 (21:45)
[2024-07-15] MEDS ORDERED: ONDANSETRON HCL 4MG/2ML INJ IV PRN (21:45)
[2024-07-15] MEDS ORDERED: LORAZEPAM 1MG TABLET PO PRN ×3 (22:00)
[2024-07-15] MEDS ORDERED: CHLORDIAZEPOXIDE 25MG CAPSULE PO PRN ×3 (22:00)
[2024-07-15] MEDS ORDERED: HYDRALAZINE 20MG/ML VIAL IV PRN (22:15)
[2024-07-15] MEDS: FUROSEMIDE 40MG/4ML VIAL IVP NR (22:24)
[2024-07-15] MEDS: MULTIVITAMINS,THER W-MINERALS TABLET PO SCH (22:24)
[2024-07-15] MEDS: THIAMINE HCL 100MG TABLET PO SCH (22:25)
[2024-07-15 22:56] LABS: IRON 30 ug/dL (65-175)
[2024-07-15 22:57] LABS: LACTATE DEHYDROGENASE 267 IU/L (120-246)
[2024-07-15 22:58] LABS: TOTAL IRON BINDING CAPACITY 368 ug/dl (250-425)
[2024-07-15] MEDS: ENOXAPARIN 80MG/0.8ML SYR SUBCUT SCH (23:00)
[2024-07-15] MEDS ORDERED: CEFTRIAXONE 1GM/50ML 50 ML IV SCH (23:00)
[2024-07-16] VITALS (8 sets, daily range): BP systolic 100–138; BP diastolic 61–84; PULSE 74–103; RESP 16–22; TEMP 36.1–36.7; O2SAT 96–100
[2024-07-16] MEDS ORDERED: LORAZEPAM 2MG/ML UD SYRINGE IV PRN (00:15)
[2024-07-16] MEDS: SPIRONOLACTONE 25MG TABLET PO SCH (00:21)
[2024-07-16] MEDS: LACTULOSE 20G/30ML UDC PO SCH ×2 (00:21→21:11)
[2024-07-16] MEDS: CEFTRIAXONE 1GM/50ML 50 ML IV SCH (00:50)
[2024-07-16] MEDS: PANTOPRAZOLE SODIUM 40 MG/VIAL IV SCH ×2 (00:50→18:10)
[2024-07-16] MEDS: GUAIFENESIN 200MG/10ML SUGAR FREE UDC PO PRN (04:31)
[2024-07-16] MEDS: IPRATROPIUM/ALBUTEROL 0.5-3(2.5)MG/3ML NEB HHN PRN (04:50)
[2024-07-16] MEDS: FUROSEMIDE 40MG/4ML VIAL IV SCH (06:34)
[2024-07-16 07:03] LABS: CHLORIDE 102 mEq/L (98-107); POTASSIUM 3.4 mEq/L (3.5-5.1); SODIUM 139 mEq/L (136-145)
[2024-07-16 07:05] LABS: CARBON DIOXIDE 27 mEq/L (21-32)
[2024-07-16 07:06] LABS: CALCIUM 9.3 mg/dL (8.7-10.4)
[2024-07-16 07:08] LABS: T4 FREE 1.12 ng/dL (0.89-1.76); THYROID STIMULATING HORMONE 2.83 uIU/mL (0.55-4.78); TRIGLYCERIDE 174 mg/dL (0-150)
[2024-07-16 07:10] LABS: BASOPHILS % 0.6 % (0.0-2.0); EOSINOPHILS % 0.6 % (0.0-5.0); HEMATOCRIT. 24.3 % (42.0-52.0); HEMOGLOBIN. 7.8 g/dL (14.0-18.0); LYMPHOCYTES % 9.2 % (20.0-50.0); MEAN CORPUSCULAR HEMOGLOBIN 28.1 pg (28.0-32.0); MEAN CORPUSCULAR HGB CONC 32.2 g/dL (31.0-37.0); MEAN CORPUSCULAR VOLUME 87.2 fL (80.0-94.0); MEAN PLATELET VOLUME 10.1 fl (7.4-10.4); NEUTROPHILS % 78.6 % (40.0-76.0); PLATELET 139 x1000/uL (130-400); RED BLOOD CELL COUNT 2.78 mill/uL (4.7-6.1); RED CELL DISTRIBUTION WIDTH 21.1 % (11.6-14.6); WHITE BLOOD COUNT 9.1 x1000/uL (4.5-11.0)
[2024-07-16 07:11] LABS: GLUCOSE 121 mg/dL (70-105); UREA NITROGEN BLOOD 7 mg/dL (9-23)
[2024-07-16 07:12] LABS: ALBUMIN 3.6 g/dL (3.2-4.8); LDL CHOLESTEROL 119 mg/dL (5-100)
[2024-07-16 07:13] LABS: ALANINE AMINOTRANSFERASE 12 IU/L (10-49); ASPARTATE AMINOTRANSFERASE 60 IU/L (<34); BILIRUBIN TOTAL 3.3 mg/dL (0.1-1.0); CHOLESTEROL 179 mg/dL (<200); HDL CHOLESTEROL 32 mg/dL (>55); PROTEIN TOTAL 7.5 g/dL (6.0-8.3)
[2024-07-16] MEDS: EMPAGLIFLOZIN 10MG TABLET PO SCH (09:42)
[2024-07-16] MEDS: FERROUS SULFATE 325MG TABLET PO SCH ×2 (09:43→18:07)
[2024-07-16] MEDS: FOLIC ACID 1MG TABLET PO SCH (09:43)
[2024-07-16] MEDS: CARVEDILOL 3.125 MG TABLET PO SCH (09:47)
[2024-07-16] MEDS: POTASSIUM CHLORIDE 20MEQ/PACKET PO NR (09:51)
[2024-07-16] MEDS ORDERED: CEFTRIAXONE 1GM/50ML 50 ML IV SCH (12:00)
[2024-07-16 13:55] LABS: AMMONIA 85 uMol/L (<32)
[2024-07-16] MEDS: ASPIRIN 81MG TABLET PO SCH (15:11)
[2024-07-16] MEDS: ASCORBIC ACID 250 MG TABLET PO SCH (18:07)
[2024-07-16] MEDS: ATORVASTATIN CALCIUM 40MG TABLET PO SCH (21:10)
[2024-07-16] MEDS: RIFAXIMIN 550 MG TABLET PO SCH (21:10)
[2024-07-17] VITALS: BP 92/59; PULSE 88; RESP 19; TEMP 37; O2SAT 100
[2024-07-17 04:00] VITALS: BP 95/69; PULSE 59; RESP 18; TEMP 36.6; O2SAT 97
[2024-07-17 06:53] LABS: INR 1.2; PROTHROMBIN TIME 12.5 sec (9.6-11.0)
[2024-07-17 07:03] LABS: HEMATOCRIT. 24.1 % (42.0-52.0); HEMOGLOBIN. 7.7 g/dL (14.0-18.0); MEAN CORPUSCULAR HEMOGLOBIN 28.1 pg (28.0-32.0); MEAN CORPUSCULAR HGB CONC 31.8 g/dL (31.0-37.0); MEAN CORPUSCULAR VOLUME 88.5 fL (80.0-94.0); PLATELET 121 x1000/uL (130-400); RED BLOOD CELL COUNT 2.73 mill/uL (4.7-6.1); WHITE BLOOD COUNT 7.4 x1000/uL (4.5-11.0)
[2024-07-17 07:14] LABS: CHLORIDE 98 mEq/L (98-107); DIFFERENTIAL COMMENT 1; POTASSIUM 3.5 mEq/L (3.5-5.1); SODIUM 137 mEq/L (136-145)
[2024-07-17 07:16] LABS: CARBON DIOXIDE 30 mEq/L (21-32)
[2024-07-17 07:17] LABS: CALCIUM 8.2 mg/dL (8.7-10.4)
[2024-07-17 07:21] LABS: CREATININE 1.3 mg/dL (0.6-1.3)
[2024-07-17 07:22] LABS: ALANINE AMINOTRANSFERASE 9 IU/L (10-49); GLUCOSE 110 mg/dL (70-105); UREA NITROGEN BLOOD 10 mg/dL (9-23); VITAMIN B12 SERUM 480 pg/mL (211-911)
[2024-07-17 07:23] LABS: ALBUMIN 3.4 g/dL (3.2-4.8)
[2024-07-17 07:24] LABS: ASPARTATE AMINOTRANSFERASE 44 IU/L (<34); BILIRUBIN DIRECT 2.3 mg/dL (<=3.0); BILIRUBIN TOTAL 3.7 mg/dL (0.1-1.0); PROTEIN TOTAL 7.5 g/dL (6.0-8.3)
[2024-07-17 07:34] LABS: HEPATITIS B SURFACE ANTIGEN NEGATIVE (Negative)
[2024-07-17 07:55] LABS: HEPATITIS A AB IGM NEGATIVE (Negative); HEPATITIS B CORE AB IGM NEGATIVE (Negative)
[2024-07-17 07:56] LABS: HEPATITIS C AB NON REACTIVE (Neg) (Negative)
[2024-07-17 08:00] VITALS: BP 98/51; PULSE 91; RESP 20; TEMP 36.6; O2SAT 98
[2024-07-17 12:00] VITALS: BP 115/83; PULSE 94; RESP 20; TEMP 36.7; O2SAT 97
[2024-07-17 14:13] LABS: PLATELET ESTIMATE NORMAL; ROULEAUX 1+
[2024-07-17 15:55] VITALS: BP 119/90; PULSE 96; RESP 20; TEMP 35.6; O2SAT 97
[2024-07-17] MEDS ORDERED: COR3 MT (16:04)
[2024-07-17] MEDS ORDERED: LACT10SO81 MT (16:04)
[2024-07-17] MEDS ORDERED: ASPI-1160 PO (16:10)
[2024-07-17] MEDS ORDERED: THIA100T72 MT (16:12)
[2024-07-17] MEDS ORDERED: FERR325T6 MT (16:12)
[2024-07-17] MEDS ORDERED: FOLI-43 MT (16:12)
[2024-07-17] MEDS ORDERED: ASCO100T12 MT (16:12)
[2024-07-17 16:22] VITALS: BP 119/90; PULSE 97; TEMP 96.8; O2SAT 98
== END 2024-07-17 17:45 | disposition home or self-care (01) | DRG 194 ==
LOC: ER 15:51 → 6WST 18:36 → EDBEDREQ 18:45
PROVIDERS: ADMIT Internal Medicine; ATTEND Internal Medicine
DX: I11.0 Hypertensive heart disease with heart failure (principal); J96.10 Chronic respiratory failure, unspecified whether with hypoxia or hypercapnia; K76.6 Portal hypertension; K83.1 Obstruction of bile duct; I42.0 Dilated cardiomyopathy; K70.30 Alcoholic cirrhosis of liver without ascites; D50.9 Iron deficiency anemia, unspecified; D53.9 Nutritional anemia, unspecified; F10.229 Alcohol dependence with intoxication, unspecified; I50.43 Acute on chronic combined systolic (congestive) and diastolic (congestive) heart failure; I48.91 Unspecified atrial fibrillation; E87.5 Hyperkalemia; E78.5 Hyperlipidemia, unspecified; E53.8 Deficiency of other specified B group vitamins; F17.210 Nicotine dependence, cigarettes, uncomplicated; K31.89 Other diseases of stomach and duodenum; I44.7 Left bundle-branch block, unspecified; R56.9 Unspecified convulsions; Z79.82 Long term (current) use of aspirin; Z79.84 Long term (current) use of oral hypoglycemic drugs; Z79.899 Other long term (current) drug therapy; Z95.3 Presence of xenogenic heart valve; Z91.148 Patient's other noncompliance with medication regimen for other reason; Y90.9 Presence of alcohol in blood, level not specified
CPT/HCPCS: 36415; 71045; 76700; 76705; 80048; 80061; 80076; 80320; 81003; 82105; 82140; 82270; 82607; 82728; 82746; 82962; 83540; 83550; 83615; 83880; 84132; 84439; 84443; 84484; 85025; 85044; 86705; 86709; 86850; 86900; 87340; 93005; 93306; 93970; 94070; 94640; 94664; 98960; 99285; A4606; J0610; J0696; J1650; J1940; J2470; J7060; G0480

== ENCOUNTER 2024-09-19 15:47 | Inpatient (IN) | payer MEDICAID ==
[~2024-09-19] VITALS: Ht 172.7 cm; Wt 89.4 kg
[~2024-09-19 15:47] MED LIST changes: +ALD50 PO; +ASCO100T12 MT; +ASPI-1160 PO; +EMPA10TA PO; -EMPA25TA PO; +FERR325T6 MT; -FURO80TA87 PO; +LACT10SO81 MT; -LISI20TA31 PO; +METO-385 PO; -METO-396 PO; +PULM50 HHN; -SPIR25TA6 PO; +THIA100T72 MT; -THIA100T72 PO
[2024-09-19 17:44] LABS: BASOPHILS % 0.5 % (0.0-2.0); EOSINOPHILS % 1.9 % (0.0-5.0); LYMPHOCYTES % 22.2 % (20.0-50.0); MEAN CORPUSCULAR HEMOGLOBIN 30.7 pg (28.0-32.0); MEAN CORPUSCULAR HGB CONC 31.1 g/dL (31.0-37.0); MEAN CORPUSCULAR VOLUME 98.5 fL (80.0-94.0); MEAN PLATELET VOLUME 11.6 fl (7.4-10.4); NEUTROPHILS % 65.4 % (40.0-76.0); PLATELET 175 x1000/uL (130-400); RED BLOOD CELL COUNT 2.94 mill/uL (4.7-6.1); WHITE BLOOD COUNT 8.5 x1000/uL (4.5-11.0)
[2024-09-19 17:48] LABS: CHLORIDE 109 mEq/L (98-107); POTASSIUM 4.6 mEq/L (3.5-5.1); SODIUM 139 mEq/L (136-145)
[2024-09-19 17:49] LABS: CARBON DIOXIDE 19 mEq/L (21-32)
[2024-09-19 17:50] LABS: CALCIUM 8.9 mg/dL (8.7-10.4)
[2024-09-19 17:54] LABS: GLUCOSE 144 mg/dL (70-105)
[2024-09-19 17:55] LABS: TROPONIN I HIGH SENSITIVITY 8 ng/L (3.0-53); UREA NITROGEN BLOOD 11 mg/dL (9-23)
[2024-09-19 18:10] LABS: PARTIAL THROMBOPLASTIN TIME 26.8 sec (23.4-31.0); PROTHROMBIN TIME 10.9 sec (9.6-11.0)
[2024-09-19] MEDS: ASPIRIN 325MG EC TABLET PO ONE (18:26)
[2024-09-19 19:00] VITALS: BP 149/78; PULSE 90; RESP 18; TEMP 36.8
[2024-09-19] MEDS: IPRATROPIUM/ALBUTEROL 0.5-3(2.5)MG/3ML NEB HHN ONE (19:38)
[2024-09-19 19:39] VITALS: PULSE 95; RESP 16; O2SAT 100
[2024-09-19] MEDS: METHYLPREDNISOLONE SOD SUCC 125MG/2ML (ACT-O-VIAL) IV ONE (19:50)
[2024-09-19] MEDS: FUROSEMIDE 40MG/4ML VIAL IVP ONE (19:50)
[2024-09-19 20:00] VITALS: BP 150/78; PULSE 81; RESP 18; TEMP 36.7; O2SAT 100
[2024-09-19] MEDS ORDERED: GUAIFENESIN 200MG/10ML SUGAR FREE UDC PO PRN (21:15)
[2024-09-19] MEDS ORDERED: IPRATROPIUM/ALBUTEROL 0.5-3(2.5)MG/3ML NEB HHN PRN (21:15)
[2024-09-19] MEDS ORDERED: MAGNESIUM/ALUMINUM HYDROXIDE/SIMETHICONE 30ML UDC PO PRN (21:15)
[2024-09-19] MEDS ORDERED: ONDANSETRON HCL 4MG/2ML INJ IV PRN (21:15)
[2024-09-19] MEDS ORDERED: ACETAMINOPHEN 325MG TABLET PO PRN ×2 (21:15)
[2024-09-19] MEDS ORDERED: FUROSEMIDE 40MG/4ML VIAL IVP SCH (21:15)
[2024-09-19] MEDS ORDERED: DEXTROSE 50% WATER 50ML SYRINGE IV PRN (21:15)
[2024-09-19] MEDS ORDERED: DOCUSATE SODIUM 100MG CAPSULE PO PRN (21:15)
[2024-09-19] MEDS ORDERED: HYDRALAZINE 20MG/ML VIAL IV PRN (21:45)
[2024-09-19] MEDS ORDERED: NITROGLYCERIN 0.4MG TABLET SL SL PRN (21:45)
[2024-09-19] MEDS ORDERED: LORAZEPAM 2MG/ML UD SYRINGE IV PRN (22:15)
[2024-09-19] MEDS: PANTOPRAZOLE SODIUM 40 MG/VIAL IV SCH (22:15)
[2024-09-20] VITALS (9 sets, daily range): BP systolic 114–140; BP diastolic 73–95; PULSE 66–90; RESP 18–20; TEMP 36.2–36.9; O2SAT 94–100
[2024-09-20 00:12] LABS: *AMPHETAMINES SCREEN URINE NEGATIVE (NEGATIVE)
[2024-09-20 00:13] LABS: *BARBITURATES SCREEN URINE NEGATIVE (NEGATIVE); *BENZODIAZEPINES SCREEN URINE NEGATIVE (NEGATIVE); *COCAINE SCREEN URINE NEGATIVE (NEGATIVE); CANNABINOID URINE SCREEN NEGATIVE (NEGATIVE); ECSTASY MDMA SCREEN URINE NEGATIVE (NEGATIVE); METHADONE URINE SCREEN NEGATIVE (NEGATIVE); OPIATES URINE SCREEN NEGATIVE (NEGATIVE); PHENCYCLIDINE URINE SCREEN NEGATIVE (NEGATIVE)
[2024-09-20 00:20] LABS: CLARITY URINE CLEAR (CLEAR); COLOR URINE YELLOW (YELLOW); PH URINE 5.5 (4.5-8.0); SPECIFIC GRAVITY URINE 1.007 (1.005-1.030)
[2024-09-20 00:21] LABS: GLUCOSE URINE NEGATIVE (NEGATIVE); KETONES URINE NEGATIVE (NEGATIVE); LEUKOCYTE ESTERASE URINE NEGATIVE (NEGATIVE); NITRITE URINE NEGATIVE (NEGATIVE); OCCULT BLOOD URINE NEGATIVE (NEGATIVE); PROTEIN URINE NEGATIVE (NEGATIVE); UROBILINOGEN URINE 0.2 E.U./dL (0.2-1.0)
[2024-09-20 07:56] LABS: BASOPHILS % 0.3 % (0.0-2.0); DIFFERENTIAL COMMENT 0; HEMOGLOBIN. 9.7 g/dL (14.0-18.0); LYMPHOCYTES % 13.3 % (20.0-50.0); MEAN CORPUSCULAR HEMOGLOBIN 30.5 pg (28.0-32.0); MEAN CORPUSCULAR HGB CONC 31.3 g/dL (31.0-37.0); MEAN CORPUSCULAR VOLUME 97.2 fL (80.0-94.0); MEAN PLATELET VOLUME 12.7 fl (7.4-10.4); MONOCYTES % 0.7 % (2.0-8.0); NEUTROPHILS % 85.7 % (40.0-76.0); PLATELET 150 x1000/uL (130-400); RED BLOOD CELL COUNT 3.18 mill/uL (4.7-6.1); RED CELL DISTRIBUTION WIDTH 16.4 % (11.6-14.6); WHITE BLOOD COUNT 7.2 x1000/uL (4.5-11.0)
[2024-09-20 08:10] LABS: CHLORIDE 104 mEq/L (98-107); SODIUM 135 mEq/L (136-145)
[2024-09-20 08:11] LABS: CALCIUM 8.7 mg/dL (8.7-10.4); CARBON DIOXIDE 23 mEq/L (21-32)
[2024-09-20 08:13] LABS: TROPONIN I HIGH SENSITIVITY 6 ng/L (3.0-53)
[2024-09-20 08:15] LABS: TRIGLYCERIDE 124 mg/dL (0-150)
[2024-09-20 08:16] LABS: GLUCOSE 190 mg/dL (70-105)
[2024-09-20 08:17] LABS: ALANINE AMINOTRANSFERASE 34 IU/L (10-49); LDL CHOLESTEROL 105 mg/dL (5-100); UREA NITROGEN BLOOD 14 mg/dL (9-23)
[2024-09-20 08:18] LABS: ALBUMIN 4.2 g/dL (3.2-4.8); ASPARTATE AMINOTRANSFERASE 81 IU/L (<34); CHOLESTEROL 154 mg/dL (<200)
[2024-09-20 08:19] LABS: BILIRUBIN DIRECT 1.1 mg/dL (<=3.0); BILIRUBIN TOTAL 1.7 mg/dL (0.1-1.0); HDL CHOLESTEROL 32 mg/dL (>55); PROTEIN TOTAL 7.7 g/dL (6.0-8.3)
[2024-09-20] MEDS: FUROSEMIDE 40MG/4ML VIAL IV SCH (08:39)
[2024-09-20] MEDS: METHYLPREDNISOLONE SOD SUCC 125MG/2ML (ACT-O-VIAL) IV SCH (08:40)
[2024-09-20] MEDS: ASPIRIN 81MG TABLET PO SCH (08:41)
[2024-09-20] MEDS: EMPAGLIFLOZIN 10MG TABLET PO SCH (08:41)
[2024-09-20] MEDS: THIAMINE HCL 100MG TABLET PO SCH (08:41)
[2024-09-20] MEDS: FOLIC ACID 1MG TABLET PO SCH (08:42)
[2024-09-20] MEDS: SPIRONOLACTONE 50MG TABLET PO SCH (08:42)
[2024-09-20] MEDS: METOPROLOL SUCCINATE 50MG ER TABLET PO SCH (08:53)
[2024-09-20] MEDS: IPRATROPIUM/ALBUTEROL 0.5-3(2.5)MG/3ML NEB HHN SCH (08:54)
[2024-09-20] MEDS: BUDESONIDE 0.5MG/2ML NEB HHN SCH (08:54)
[2024-09-20] MEDS ORDERED: PANTOPRAZOLE 40MG DR TABLET PO SCH (09:00)
[2024-09-20] MEDS: BLOOD SUGAR DIAGNOSTIC STRIP TEST SCH (09:00)
[2024-09-20] MEDS ORDERED: FOLIC ACID 1MG TABLET PO SCH (09:00)
[2024-09-20] MEDS: SODIUM POLYSTYRENE SULFONATE 15 G/60 ML BOT PO SCH (09:45)
[2024-09-20 14:30] LABS: POTASSIUM 5.3 mEq/L (3.5-5.1)
[2024-09-20 14:38] LABS: PHOSPHORUS 2.5 mg/dL (2.5-4.9)
[2024-09-20] MEDS: RIVAROXABAN 20 MG TABLET PO SCH (18:58)
[2024-09-20] MEDS: ATORVASTATIN CALCIUM 40MG TABLET PO SCH (20:35)
[2024-09-21] VITALS: BP 119/79; PULSE 78; RESP 19; TEMP 36.6; O2SAT 100
[2024-09-21 04:00] VITALS: BP 121/83; PULSE 68; RESP 18; TEMP 36.5; O2SAT 100
[2024-09-21 08:00] VITALS: BP 122/88; PULSE 78; RESP 18; TEMP 36.2; O2SAT 97
[2024-09-21 08:21] VITALS: PULSE 70; RESP 16; O2SAT 98
[2024-09-21 08:31] LABS: HEMATOCRIT. 30.9 % (42.0-52.0); HEMOGLOBIN. 9.9 g/dL (14.0-18.0); MEAN CORPUSCULAR HEMOGLOBIN 30.6 pg (28.0-32.0); MEAN CORPUSCULAR HGB CONC 32.1 g/dL (31.0-37.0); MEAN CORPUSCULAR VOLUME 95.4 fL (80.0-94.0); MEAN PLATELET VOLUME 12.2 fl (7.4-10.4); PLATELET 178 x1000/uL (130-400); RED BLOOD CELL COUNT 3.24 mill/uL (4.7-6.1); RED CELL DISTRIBUTION WIDTH 15.7 % (11.6-14.6); WHITE BLOOD COUNT 15.8 x1000/uL (4.5-11.0)
[2024-09-21 08:32] LABS: DIFFERENTIAL COMMENT 1
[2024-09-21] MEDS: FERROUS SULFATE 325MG TABLET PO SCH (08:34)
[2024-09-21 08:50] LABS: CARBON DIOXIDE 21 mEq/L (21-32); CHLORIDE 101 mEq/L (98-107); POTASSIUM 5.8 mEq/L (3.5-5.1); SODIUM 133 mEq/L (136-145)
[2024-09-21 08:51] LABS: CALCIUM 9.4 mg/dL (8.7-10.4)
[2024-09-21] MEDS ORDERED: TRAM50TA3 MT (08:53)
[2024-09-21 08:56] LABS: GLUCOSE 233 mg/dL (70-105); UREA NITROGEN BLOOD 27 mg/dL (9-23)
[2024-09-21 09:04] LABS: CREATININE 1.5 mg/dL (0.6-1.3)
[2024-09-21 10:32] LABS: ANISOCYTOSIS 1+; PLATELET ESTIMATE NORMAL
[2024-09-21] MEDS: MAGNESIUM 1 G PREMIX 100 ML IV SCH (10:51)
[2024-09-21 10:57] VITALS: BP 122/88; PULSE 78; TEMP 97.1; O2SAT 97
[2024-09-21 12:00] VITALS: BP 120/79; PULSE 80; RESP 18; TEMP 36.3; O2SAT 100
== END 2024-09-21 12:41 | disposition home or self-care (01) | DRG 194 ==
LOC: ER 15:47 → EDBEDREQTM 19:24 → EDBEDREQ 19:24 → ENRESERV 20:17 → 5WST 20:33
PROVIDERS: ADMIT Hospitalist; ATTEND Hospitalist
DX: I11.0 Hypertensive heart disease with heart failure (principal); J96.10 Chronic respiratory failure, unspecified whether with hypoxia or hypercapnia; K76.6 Portal hypertension; I85.10 Secondary esophageal varices without bleeding; K70.30 Alcoholic cirrhosis of liver without ascites; I48.19 Other persistent atrial fibrillation; R16.2 Hepatomegaly with splenomegaly, not elsewhere classified; Z79.01 Long term (current) use of anticoagulants; I50.23 Acute on chronic systolic (congestive) heart failure; F10.20 Alcohol dependence, uncomplicated; J44.9 Chronic obstructive pulmonary disease, unspecified; F17.210 Nicotine dependence, cigarettes, uncomplicated; Z79.82 Long term (current) use of aspirin; Z99.81 Dependence on supplemental oxygen; Z79.84 Long term (current) use of oral hypoglycemic drugs; Z79.899 Other long term (current) drug therapy; Z87.11 Personal history of peptic ulcer disease; Z91.148 Patient's other noncompliance with medication regimen for other reason; Z95.2 Presence of prosthetic heart valve
CPT/HCPCS: 36415; 71045; 80048; 80061; 80076; 80305; 81003; 82962; 83036; 83735; 83880; 84100; 84132; 84484; 85025; 93005; 93970; 94070; 94640; 94664; 94760; 97166; 98960; 99285; A4606; J1940; J2470; J2919; J3475; J7626

== ENCOUNTER 2024-10-25 18:46 | Inpatient (IN) | payer MEDICAID ==
[~2024-10-25] VITALS: Ht 182.9 cm; Wt 93.2 kg
[~2024-10-25 18:46] MED LIST changes: +ASCO500T20 PO; -ATOR40TA70 PO; +FERR-63 PO; +FERR325T30 PO; -LACT10SO81 MT; +LIP40 PO; +LISI-186 PO; -NICO-645 TP; +THIA100T72 PO
[2024-10-25 19:19] LABS: BASOPHILS % 0.3 % (0.0-2.0); EOSINOPHILS % 1.4 % (0.0-5.0); HEMATOCRIT. 29.1 % (42.0-52.0); HEMOGLOBIN. 9.3 g/dL (14.0-18.0); LYMPHOCYTES % 34.4 % (20.0-50.0); MEAN PLATELET VOLUME 10.6 fl (7.4-10.4); MONOCYTES % 9.7 % (2.0-8.0); NEUTROPHILS % 54.2 % (40.0-76.0); PLATELET 174 x1000/uL (130-400); RED BLOOD CELL COUNT 3.11 mill/uL (4.7-6.1); RED CELL DISTRIBUTION WIDTH 17.8 % (11.6-14.6)
[2024-10-25] MEDS: CALCIUM GLUCONATE 1GM PREMIX 50 ML IV ONE (19:19)
[2024-10-25 19:30] LABS: TROPONIN I HIGH SENSITIVITY 11 ng/L (3.0-53); UREA NITROGEN BLOOD 12 mg/dL (9-23)
[2024-10-25 19:32] LABS: ASPARTATE AMINOTRANSFERASE 63 IU/L (<34); BILIRUBIN DIRECT 1.3 mg/dL (<=3.0)
[2024-10-25 19:33] LABS: BILIRUBIN TOTAL 1.8 mg/dL (0.1-1.0); PROTEIN TOTAL 7.0 g/dL (6.0-8.3)
[2024-10-25 19:34] LABS: CREATININE 1.8 mg/dL (0.6-1.3)
[2024-10-25 19:36] LABS: INR 1.1
[2024-10-25] MEDS: NOREPINEPHRINE 8MG/250ML PMX 250 ML IV ONE (20:30)
[2024-10-25 22:30] LABS: CLARITY URINE CLEAR (CLEAR); COLOR URINE DARK YELLOW (YELLOW); GLUCOSE URINE NEGATIVE (NEGATIVE); KETONES URINE TRACE (NEGATIVE); LEUKOCYTE ESTERASE URINE 1+ (NEGATIVE); NITRITE URINE POSITIVE (NEGATIVE); OCCULT BLOOD URINE NEGATIVE (NEGATIVE); PH URINE 5.5 (4.5-8.0); PROTEIN URINE 1+ (NEGATIVE); SPECIFIC GRAVITY URINE 1.021 (1.005-1.030); UROBILINOGEN URINE 2.0 E.U./dL (0.2-1.0)
[2024-10-25 22:46] LABS: RBC URINE 0-2 /hpf (0-2); SQUAMOUS EPITHELIAL CELL URINE RARE /lpf (RARE/1+)
[2024-10-25 22:47] LABS: BACTERIA URINE 2+
[2024-10-25 23:30] VITALS: BP 109/87; PULSE 86; RESP 20; TEMP 36.5848
[2024-10-26] VITALS (16 sets, daily range): BP systolic 99–144; BP diastolic 69–98; PULSE 77–98; RESP 18–32; TEMP 36.6–36.9; O2SAT 92–100
[2024-10-26] MEDS ORDERED: ZOLPIDEM TARTRATE 5MG TABLET PO PRN (01:15)
[2024-10-26] MEDS ORDERED: ONDANSETRON HCL 4MG/2ML INJ IV PRN (01:15)
[2024-10-26] MEDS ORDERED: CLONIDINE 0.1MG TABLET PO PRN (01:15)
[2024-10-26] MEDS ORDERED: ENOXAPARIN 40MG/0.4ML SYR SUBCUT SCH (01:15)
[2024-10-26] MEDS ORDERED: MAGNESIUM/ALUMINUM HYDROXIDE/SIMETHICONE 30ML UDC PO PRN (01:15)
[2024-10-26] MEDS: SODIUM CHLORIDE 0.9% 1,000 ML IV SCH (02:18)
[2024-10-26] MEDS ORDERED: ENOXAPARIN 100MG/ML SYR SUBCUT SCH (03:00)
[2024-10-26 03:09] LABS: *AMPHETAMINES SCREEN URINE NEGATIVE (NEGATIVE); *BARBITURATES SCREEN URINE NEGATIVE (NEGATIVE); *BENZODIAZEPINES SCREEN URINE NEGATIVE (NEGATIVE); *COCAINE SCREEN URINE NEGATIVE (NEGATIVE); CANNABINOID URINE SCREEN NEGATIVE (NEGATIVE); ECSTASY MDMA SCREEN URINE NEGATIVE (NEGATIVE); METHADONE URINE SCREEN NEGATIVE (NEGATIVE); OPIATES URINE SCREEN NEGATIVE (NEGATIVE); PHENCYCLIDINE URINE SCREEN NEGATIVE (NEGATIVE)
[2024-10-26] MEDS: CEFTRIAXONE 1GM/50ML 50 ML IV SCH (06:42)
[2024-10-26 08:31] LABS: TROPONIN I HIGH SENSITIVITY 12 ng/L (3.0-53)
[2024-10-26] MEDS: PANTOPRAZOLE SODIUM 40 MG/VIAL IV SCH (08:38)
[2024-10-26] MEDS: METOPROLOL SUCCINATE 50MG ER TABLET PO SCH (08:38)
[2024-10-26] MEDS: FERROUS SULFATE 325MG TABLET PO SCH (08:39)
[2024-10-26] MEDS: EMPAGLIFLOZIN 10MG TABLET PO SCH (08:39)
[2024-10-26] MEDS: ASPIRIN 81MG TABLET PO SCH (08:39)
[2024-10-26] MEDS: LISINOPRIL 5MG TABLET PO SCH (08:39)
[2024-10-26] MEDS: FOLIC ACID 1MG TABLET PO SCH (08:39)
[2024-10-26] MEDS: ALBUTEROL (0.083%) 2.5MG/3ML NEB HHN SCH (08:52)
[2024-10-26] MEDS: BUDESONIDE 0.5MG/2ML NEB HHN SCH (08:52)
[2024-10-26] MEDS ORDERED: FERROUS SULFATE 325MG TABLET PO SCH (09:00)
[2024-10-26] MEDS ORDERED: NALOXONE HCL 0.4MG/ML VIAL IV PRN (14:45)
[2024-10-26 16:18] LABS: TROPONIN I HIGH SENSITIVITY 9 ng/L (3.0-53)
[2024-10-26] MEDS: RIVAROXABAN 20 MG TABLET PO SCH (18:08)
[2024-10-26] MEDS: FUROSEMIDE 40MG/4ML VIAL IVP SCH (18:08)
[2024-10-26] MEDS: HYDROCODONE/ACETAMINOPHEN 5/325MG TABLET PO PRN (20:00)
[2024-10-26] MEDS: ATORVASTATIN CALCIUM 40MG TABLET PO SCH (21:26)
[2024-10-27] VITALS (15 sets, daily range): BP systolic 91–121; BP diastolic 4–86; PULSE 84–111; RESP 16–35; TEMP 36.7–36.9; O2SAT 89–100
[2024-10-27] MEDS: IPRATROPIUM/ALBUTEROL 0.5-3(2.5)MG/3ML NEB HHN SCH
[2024-10-27 08:07] LABS: CREATININE 1.0 mg/dL (0.6-1.3); UREA NITROGEN BLOOD 10 mg/dL (9-23)
[2024-10-27 08:22] LABS: BASOPHILS % 0.5 % (0.0-2.0); EOSINOPHILS % 2.4 % (0.0-5.0); HEMATOCRIT. 27.5 % (42.0-52.0); HEMOGLOBIN. 8.9 g/dL (14.0-18.0); LYMPHOCYTES % 14.0 % (20.0-50.0); MEAN PLATELET VOLUME 11.4 fl (7.4-10.4); MONOCYTES % 14.2 % (2.0-8.0); NEUTROPHILS % 68.9 % (40.0-76.0); PLATELET 127 x1000/uL (130-400); RED BLOOD CELL COUNT 2.91 mill/uL (4.7-6.1); RED CELL DISTRIBUTION WIDTH 17.8 % (11.6-14.6)
[2024-10-27] MEDS: ACETAMINOPHEN 325MG TABLET PO PRN (17:15)
[2024-10-27 17:50] LABS: BG BASE EXCESS 3.9 mmol/L (-2.0-3.0); BG CARBOXYHEMOGLOBIN 0.8 % (0.5-1.5); BG DEOXYHEMOGLOBIN 2.8 % (0.0-5.0); BG FRACTION INSPIRED OXYGEN 21; BG HCO3 ACT 27.4 mmol/L (21.0-28.0); BG METHEMOGLOBIN 0.3 % (0.5-1.5); BG OXYGEN SATURATION 97.2 % (94.0-98.0); BG OXYHEMOGLOBIN 96.1 % (94.0-98.0); BG PCO2 36.9 mmHg (35.0-48.0); BG PH 7.489 (7.350-7.450); BG PO2 87.0 mmHg (83.0-108.0); BG SAMPLE SITE RIGHT RADIAL; BG TOTAL HEMOGLOBIN 9.9 g/dL (13.5-17.5); BG VENT MODE ROOM AIR
[2024-10-27] MEDS: PREDNISONE 20MG TABLET PO SCH (23:30)
[2024-10-28] VITALS (9 sets, daily range): BP systolic 87–115; BP diastolic 47–82; PULSE 81–110; RESP 20–31; TEMP 36.7–36.9; O2SAT 95–100
[2024-10-28] MEDS ORDERED: IPRATROPIUM/ALBUTEROL 0.5-3(2.5)MG/3ML NEB HHN SCH
[2024-10-28 07:21] LABS: HEMATOCRIT. 28.5 % (42.0-52.0); HEMOGLOBIN. 9.1 g/dL (14.0-18.0); MEAN PLATELET VOLUME 12.1 fl (7.4-10.4); PLATELET 139 x1000/uL (130-400); RED BLOOD CELL COUNT 3.01 mill/uL (4.7-6.1); RED CELL DISTRIBUTION WIDTH 18.0 % (11.6-14.6)
[2024-10-28 07:26] LABS: CREATININE 1.2 mg/dL (0.6-1.3); UREA NITROGEN BLOOD 13 mg/dL (9-23)
[2024-10-28] MEDS ORDERED: METH4TAB95 MT (12:30)
[2024-10-28 13:45] LABS: BAND% 9.0 % (1.0-6.0); EOSINOPHILS % MANUAL 3.0 % (0.0-5.0); LYMPHOCYTES % MANUAL 21.0 % (20.0-50.0); MONOCYTES % MANUAL 14.0 % (2.0-8.0); NEUTROPHILS % MANUAL 53.0 % (45.0-75.0); PLATELET ESTIMATE NORMAL
[2024-10-29] MEDS ORDERED: FAMOTIDINE 20MG/2ML VIAL IV SCH (09:00)
== END 2024-10-28 14:50 | disposition home or self-care (01) | DRG 194 ==
LOC: ER 18:46 → 5EST 21:51 → EDBEDREQTM 21:54 → EDBEDREQ 21:54 → EDBEDREQSVC 21:54 → ENRESERV 22:08
PROVIDERS: ADMIT Internal Medicine; ATTEND Internal Medicine
DX: I13.0 Hypertensive heart and chronic kidney disease with heart failure and stage 1 through stage 4 chronic kidney disease, or unspecified chronic kidney disease (principal); J96.00 Acute respiratory failure, unspecified whether with hypoxia or hypercapnia; N17.9 Acute kidney failure, unspecified; I95.9 Hypotension, unspecified; K74.60 Unspecified cirrhosis of liver; Z95.2 Presence of prosthetic heart valve; Z79.01 Long term (current) use of anticoagulants; D64.9 Anemia, unspecified; J96.01 Acute respiratory failure with hypoxia; I48.0 Paroxysmal atrial fibrillation; F10.10 Alcohol abuse, uncomplicated; N39.0 Urinary tract infection, site not specified; E78.5 Hyperlipidemia, unspecified; Y90.9 Presence of alcohol in blood, level not specified; J44.1 Chronic obstructive pulmonary disease with (acute) exacerbation; N18.9 Chronic kidney disease, unspecified; K80.20 Calculus of gallbladder without cholecystitis without obstruction; Z91.148 Patient's other noncompliance with medication regimen for other reason; Z99.81 Dependence on supplemental oxygen
CPT/HCPCS: 36415; 36600; 71045; 74176; 80048; 80076; 80305; 81003; 82375; 82805; 83880; 84484; 85025; 93970; 94070; 94640; 97162; 99291; A4606; J0610; J0696; J1938; J2470; J3490; J7512; J7626

== ENCOUNTER 2025-02-13 22:15 | Inpatient (IN) | payer MEDICAID ==
[~2025-02-13] VITALS: Ht 175.3 cm; Wt 88.9 kg
[~2025-02-13 22:15] MED LIST changes: -ASCO500T20 PO; +COR6 PO; -FERR-63 PO; -FERR325T30 PO; -FURO40TA5 PO; +FURO80TA3 PO; -METO-385 PO; -THIA100T72 PO
[2025-02-13 23:36] LABS: INR 1.0
[2025-02-13 23:38] LABS: BASOPHILS % 0.6 % (0.0-2.0); CREATININE 0.8 mg/dL (0.6-1.3); EOSINOPHILS % 1.8 % (0.0-5.0); HEMATOCRIT. 26.7 % (42.0-52.0); HEMOGLOBIN. 7.9 g/dL (14.0-18.0); LYMPHOCYTES % 14.1 % (20.0-50.0); MEAN PLATELET VOLUME 10.5 fl (7.4-10.4); MONOCYTES % 14.5 % (2.0-8.0); NEUTROPHILS % 69.0 % (40.0-76.0); PLATELET 213 x1000/uL (130-400); RED BLOOD CELL COUNT 3.01 mill/uL (4.7-6.1); RED CELL DISTRIBUTION WIDTH 18.6 % (11.6-14.6)
[2025-02-13 23:39] LABS: UREA NITROGEN BLOOD 9 mg/dL (9-23)
[2025-02-13 23:40] LABS: TROPONIN I HIGH SENSITIVITY 11 ng/L (3.0-53)
[2025-02-13] MEDS: METOPROLOL TARTRATE 5MG/5ML VIAL IV ONE (23:50)
[2025-02-13] MEDS: ASPIRIN 325MG TABLET PO ONE (23:50)
[2025-02-13] MEDS: FUROSEMIDE 40MG/4ML VIAL IV ONE (23:50)
[2025-02-14 01:50] LABS: TROPONIN I HIGH SENSITIVITY 13 ng/L (3.0-53)
[2025-02-14] MEDS ORDERED: GUAIFENESIN 200MG/10ML SUGAR FREE UDC PO PRN (03:15)
[2025-02-14] MEDS ORDERED: ACETAMINOPHEN 325MG TABLET PO PRN (03:15)
[2025-02-14] MEDS ORDERED: DOCUSATE SODIUM 100MG CAPSULE PO PRN (03:15)
[2025-02-14] MEDS ORDERED: CLONIDINE 0.1MG TABLET PO PRN (03:15)
[2025-02-14] MEDS ORDERED: IPRATROPIUM/ALBUTEROL 0.5-3(2.5)MG/3ML NEB NEB PRN (03:15)
[2025-02-14] MEDS ORDERED: NON FORMULARY MED XX SCH (03:15)
[2025-02-14] MEDS ORDERED: DEXTROSE 50% WATER 50ML SYRINGE IV PRN (03:15)
[2025-02-14] MEDS ORDERED: MAGNESIUM/ALUMINUM HYDROXIDE/SIMETHICONE 30ML UDC PO PRN (03:15)
[2025-02-14] MEDS ORDERED: ONDANSETRON HCL 4MG/2ML INJ IV PRN (03:15)
[2025-02-14 03:47] VITALS: BP 134/90; PULSE 109; RESP 20; TEMP 36.8628
[2025-02-14] MEDS: TRAMADOL 50MG TABLET PO PRN (04:16)
[2025-02-14] MEDS: ACETAMINOPHEN 325MG TABLET PO PRN (04:17)
[2025-02-14] MEDS: MAGNESIUM 2 G PREMIX 50 ML IV NR (04:19)
[2025-02-14 04:51] LABS: CLARITY URINE CLEAR (CLEAR); COLOR URINE YELLOW (YELLOW); GLUCOSE URINE NEGATIVE (NEGATIVE); KETONES URINE NEGATIVE (NEGATIVE); LEUKOCYTE ESTERASE URINE NEGATIVE (NEGATIVE); NITRITE URINE NEGATIVE (NEGATIVE); OCCULT BLOOD URINE NEGATIVE (NEGATIVE); PH URINE 7.0 (4.5-8.0); PROTEIN URINE NEGATIVE (NEGATIVE); SPECIFIC GRAVITY URINE 1.007 (1.005-1.030); UROBILINOGEN URINE 1.0 E.U./dL (0.2-1.0)
[2025-02-14 05:33] LABS: *AMPHETAMINES SCREEN URINE NEGATIVE (NEGATIVE)
[2025-02-14 05:34] LABS: *BARBITURATES SCREEN URINE NEGATIVE (NEGATIVE); *BENZODIAZEPINES SCREEN URINE NEGATIVE (NEGATIVE); *COCAINE SCREEN URINE NEGATIVE (NEGATIVE); CANNABINOID URINE SCREEN NEGATIVE (NEGATIVE); ECSTASY MDMA SCREEN URINE NEGATIVE (NEGATIVE); METHADONE URINE SCREEN NEGATIVE (NEGATIVE); OPIATES URINE SCREEN NEGATIVE (NEGATIVE); PHENCYCLIDINE URINE SCREEN NEGATIVE (NEGATIVE)
[2025-02-14] MEDS: IRON SUCROSE COMPLEX 100 MG/5 ML ML IV SCH (05:52)
[2025-02-14] MEDS: ENOXAPARIN 80MG/0.8ML SYR SUBCUT SCH (05:53)
[2025-02-14] MEDS: BLOOD SUGAR DIAGNOSTIC STRIP TEST SCH (06:13)
[2025-02-14] MEDS: INSULIN LISPRO 100 UNITS/ML SUBCUT SCH (07:20)
[2025-02-14 08:00] VITALS: BP 129/82; PULSE 92; RESP 23; TEMP 36.6; O2SAT 100
[2025-02-14] MEDS: FUROSEMIDE 40MG/4ML VIAL IV SCH (09:21)
[2025-02-14] MEDS: AMOXICILLIN/POTASSIUM CLAVULANATE 875/125MG TAB PO SCH (09:21)
[2025-02-14] MEDS: ASPIRIN 81MG TABLET PO SCH (09:21)
[2025-02-14] MEDS: EMPAGLIFLOZIN 10MG TABLET PO SCH (09:21)
[2025-02-14] MEDS: PANTOPRAZOLE 40MG DR TABLET PO SCH (09:21)
[2025-02-14] MEDS: LISINOPRIL 5MG TABLET PO SCH (09:38)
[2025-02-14 12:00] VITALS: BP 123/95; PULSE 99; RESP 21; TEMP 36.7; O2SAT 100
[2025-02-14 16:00] VITALS: BP 120/82; PULSE 104; RESP 22; TEMP 36.7; O2SAT 100
[2025-02-14] MEDS: FUROSEMIDE 40MG/4ML VIAL IVP SCH (17:06)
[2025-02-14 17:44] LABS: TROPONIN I HIGH SENSITIVITY 13 ng/L (3.0-53)
[2025-02-14 17:45] LABS: ASPARTATE AMINOTRANSFERASE 47 IU/L (<34); BILIRUBIN DIRECT 1.8 mg/dL (<=3.0); BILIRUBIN TOTAL 2.9 mg/dL (0.1-1.0); PROTEIN TOTAL 6.7 g/dL (6.0-8.3)
[2025-02-14] MEDS: DILTIAZEM HCL 120MG CAPSULE ER 24HR PO SCH (19:15)
[2025-02-14 20:04] VITALS: BP 101/73; PULSE 110; RESP 25; TEMP 37.4; O2SAT 100
[2025-02-14 21:07] VITALS: PULSE 108; RESP 18; O2SAT 95
[2025-02-14] MEDS: IPRATROPIUM/ALBUTEROL 0.5-3(2.5)MG/3ML NEB HHN SCH (21:07)
[2025-02-14] MEDS: ATORVASTATIN CALCIUM 40MG TABLET PO SCH (22:00)
[2025-02-15] VITALS (9 sets, daily range): BP systolic 93–117; BP diastolic 69–82; PULSE 90–110; RESP 17–28; TEMP 36.2–36.8; O2SAT 96–100
[2025-02-15 07:10] LABS: HEMATOCRIT. 25.8 % (42.0-52.0); HEMOGLOBIN. 7.9 g/dL (14.0-18.0); MEAN PLATELET VOLUME 10.6 fl (7.4-10.4); PLATELET 192 x1000/uL (130-400); RED BLOOD CELL COUNT 3.00 mill/uL (4.7-6.1); RED CELL DISTRIBUTION WIDTH 18.1 % (11.6-14.6)
[2025-02-15 07:16] LABS: CREATININE 1.1 mg/dL (0.6-1.3)
[2025-02-15 07:18] LABS: UREA NITROGEN BLOOD 12 mg/dL (9-23)
[2025-02-15 07:20] LABS: PHOSPHORUS 4.8 mg/dL (2.5-4.9)
[2025-02-15 12:55] LABS: BAND% 4.0 % (1.0-6.0); EOSINOPHILS % MANUAL 1.0 % (0.0-5.0); LYMPHOCYTES % MANUAL 20.0 % (20.0-50.0); MONOCYTES % MANUAL 6.0 % (2.0-8.0); NEUTROPHILS % MANUAL 69.0 % (45.0-75.0); NUCLEATED RED BLOOD CELLS 1 /100 WBC; PLATELET ESTIMATE NORMAL
[2025-02-15] MEDS: AZITHROMYCIN 500MG/250ML 250 ML IV SCH (17:50)
[2025-02-16] VITALS (8 sets, daily range): BP systolic 99–123; BP diastolic 67–80; PULSE 101–115; RESP 15–25; TEMP 36.6–36.8; O2SAT 96–100
[2025-02-16] MEDS ORDERED: AZIT500T8 MT (13:54)
[2025-02-16] MEDS ORDERED: AMOX1TAB16 PO (13:54)
== END 2025-02-16 17:20 | disposition home health service (06) | DRG 133 ==
LOC: ER 22:15 → EDBEDREQDT 02-14 02:23 → EDBEDREQ 02-14 02:23 → EDBEDREQTM 02-14 02:23 → EDBEDREQSVC 02-14 02:23 → ENRESERV 02-14 03:19 → 3WST 02-14 03:42
PROVIDERS: ADMIT Internal Medicine; ATTEND Internal Medicine
DX: J96.21 Acute and chronic respiratory failure with hypoxia (principal); I50.23 Acute on chronic systolic (congestive) heart failure; K70.31 Alcoholic cirrhosis of liver with ascites; R16.2 Hepatomegaly with splenomegaly, not elsewhere classified; D50.9 Iron deficiency anemia, unspecified; E11.9 Type 2 diabetes mellitus without complications; E66.811 Obesity, class 1; E83.42 Hypomagnesemia; Z79.01 Long term (current) use of anticoagulants; K04.7 Periapical abscess without sinus; I11.0 Hypertensive heart disease with heart failure; J43.9 Emphysema, unspecified; F10.20 Alcohol dependence, uncomplicated; Z95.2 Presence of prosthetic heart valve; Z60.2 Problems related to living alone; K76.0 Fatty (change of) liver, not elsewhere classified; K80.20 Calculus of gallbladder without cholecystitis without obstruction; I48.19 Other persistent atrial fibrillation; F17.210 Nicotine dependence, cigarettes, uncomplicated; Z79.4 Long term (current) use of insulin; Z79.82 Long term (current) use of aspirin; Z79.84 Long term (current) use of oral hypoglycemic drugs; Z79.899 Other long term (current) drug therapy; Z86.718 Personal history of other venous thrombosis and embolism; Z68.28 Body mass index [BMI] 28.0-28.9, adult
CPT/HCPCS: 36415; 71045; 76700; 80048; 80076; 80305; 81003; 82962; 83735; 83880; 84100; 84484; 85025; 85379; 93005; 93970; 94070; 94640; 94664; 99291; A4606; J0456; J1650; J1938; J3475; J3490